=== PATIENT | female | born 1960 | race African-American/Black ===

== ENCOUNTER → 2017-05-10 | Outpatient (CLI) | payer BC ==
[2017-05-10 09:15] LABS: HEMATOCRIT 41.8 % (36.0-47.0); HEMOGLOBIN 13.6 g/dL (12.0-15.5); MEAN CORPUSCULAR HEMOGLOBIN 28.3 pg (27.0-33.4); MEAN CORPUSCULAR HGB CONC 32.6 g/dL (32.0-36.0); MEAN CORPUSCULAR VOLUME 87 fl (80-97); RED BLOOD COUNT 4.82 10^6/uL (3.72-5.28); RED CELL DISTRIBUTION WIDTH 12.9 % (11.5-14.0); WHITE BLOOD COUNT 6.4 10^3/uL (4.0-10.5)
[2017-05-10 09:26] LABS: ALANINE AMINOTRANSFERASE 23 U/L (9-52); ALBUMIN 3.9 g/dL (3.5-5.0); ALKALINE PHOSPHATASE 103 U/L (38-126); ANION GAP 9 (5-19); ASPARTATE AMINO TRANSFERASE 18 U/L (14-36); BILIRUBIN,DIRECT 0.3 mg/dL (0.0-0.4); BILIRUBIN,TOTAL 0.5 mg/dL (0.2-1.3); BLOOD UREA NITROGEN 12 mg/dL (7-20); CALCIUM 9.2 mg/dL (8.4-10.2); CARBON DIOXIDE 23 mmol/L (22-30); CHLORIDE 110 mmol/L (98-107); CHOLESTEROL 215.15 mg/dL (0-200); Direct HDL 62 mg/dL (>40); GLUCOSE 102 mg/dL (75-110); POTASSIUM 4.5 mmol/L (3.6-5.0); SODIUM 142.2 mmol/L (137-145); TOTAL PROTEIN 7.3 g/dL (6.3-8.2); TRIGLYCERIDES 65 mg/dL (<150)
[2017-05-10 09:37] LABS: DIRECT LDL 131 mg/dL (<100)
== END ==
LOC: OD 07:15
PROVIDERS: ATTEND Specialist
DX: G45.9 Transient cerebral ischemic attack, unspecified (principal)
CPT/HCPCS: 36415; 80053; 80061; 82306; 83036; 85027

== ENCOUNTER 2017-05-14 13:31 | Observation (INO) | payer BC ==
[2017-05-14] MEDS ORDERED: ASPIRIN 81 MG TABLET, CHEWABLE PO ONE (13:46)
--- NOTE | 2017-05-14 14:22 | ER Document Report ---
ED Medical Screen (RME) - General Chief Complaint: Chest Pain Stated Complaint: CHEST PAIN Mode of Arrival: Ambulatory Information source: Patient TRAVEL OUTSIDE OF THE [place] IN LAST 30 DAYS: No - HPI Onset: Other Onset/Duration: Intermittent Associated Symptoms: None Exacerbated by: Denies Notes: 05/14/17 14:20 Patient is a 56-year-old female with history of migraine headaches. She is followed by neurology. She presents with onset today of pain in her upper back between her shoulder blades and possibly radiate to her chest. No shortness of breath, nausea, sweats. She also complains of numbness and tingling to her left upper and lower extremity without any focal weakness. Patient reports having similar symptoms last week and was seen by her neurologist at that time and was told she had a "mini stroke". She has an outpatient MRI/MRA scheduled for . There has been no syncope. She is not short of breath. Denies any prior history of CVA/TIA or hypertension or diabetes. It was recommended that patient take a baby aspirin daily but she has not yet done this. - Related Data Smoking: Non-smoker Allergies/Adverse Reactions: acetaminophen [From Percocet] Allergy (Intermediate, Verified 05/14/17 14:07) itching, headaches ciprofloxacin [Ciprofloxacin] Allergy (Intermediate, Verified 05/14/17 14:07) Hives, itching hydrocodone bitartrate [From Vicodin] Allergy (Intermediate, Verified 05/14/17 14:07) itching, headaches oxycodone HCl [From Percocet] Allergy (Intermediate, Verified 05/14/17 14:07) itching, headaches Past Medical History - General Information source: Patient, [facility] Records - Social History Chew tobacco use (# tins/day): No Frequency of alcohol use: None Drug Abuse: None - Medical History Notes: Migraine headaches - Past Medical History Cardiac Medical History: Denies: Hx Coronary Artery Disease, Hx Heart Attack, Hx Hypertension Pulmonary Medical History: Denies: Hx Asthma, Hx Bronchitis, Hx COPD, Hx Pneumonia Neurological Medical History: Reports: Hx Migraine. Denies: Hx Cerebrovascular Accident, Hx Seizures Renal/ Medical History: Denies: Hx Peritoneal Dialysis Musculoskeltal Medical History: Denies Hx Arthritis Past Surgical History: Reports: Hx Hysterectomy - Immunizations Hx Diphtheria, Pertussis, Tetanus Vaccination: Yes Review of Systems - Review of Systems Cardiovascular: Chest pain Neurological/Psychological: Tingling -: Yes All other systems reviewed and negative Physical Exam - Vital signs Vitals: Temp Pulse Resp BP Pulse Ox 98.1 F 66 16 122/66 99 05/14/17 13:42 05/14/17 13:42 05/14/17 13:42 05/14/17 13:42 05/14/17 13:42 Interpretation: Normal - General General appearance: Appears well, Alert - HEENT Head: Normocephalic, Atraumatic Eyes: Normal Pupils: PERRL - Respiratory Respiratory status: No respiratory distress Chest status: Nontender Breath sounds: Normal Chest palpation: Normal - Cardiovascular Rhythm: Regular Heart sounds: Normal auscultation Murmur: No - Abdominal Inspection: Normal Distension: No distension Bowel sounds: Normal Tenderness: Nontender Organomegaly: No organomegaly - Back Back: Normal, Nontender - Extremities General upper extremity: Normal inspection, Nontender, Normal color, Normal ROM , Normal temperature General lower extremity: Normal inspection, Nontender, Normal color, Normal ROM , Normal temperature, Normal weight bearing. No: Aayush's sign - Neurological Neuro grossly intact: Yes Cognition: Normal Orientation: AAOx4 Apolinar Coma Scale Eye Opening: Spontaneous Apolinar Coma Scale Verbal: Oriented Apolinar Coma Scale Motor: Obeys Commands [place] Coma Scale Total: 15 Speech: Normal Motor strength normal: LUE, RUE, LLE, RLE Sensory: Normal - Psychological Associated symptoms: Normal affect, Normal mood - Skin Skin Temperature: Warm Skin Moisture: Dry Skin Color: Normal Course - Re-evaluation Re-evalutation: 05/14/17 14:22 Physical examination is unremarkable. Patient will be transferred to the main treatment area for further evaluation by another ED provider. There is no indication for thrombolytics at this time. - Vital Signs Vital signs: Temp Pulse Resp BP Pulse Ox 98.1 F 66 16 122/66 99 05/14/17 13:42 05/14/17 13:42 05/14/17 13:42 05/14/17 13:42 05/14/17 13:42
--- NOTE | 2017-05-14 14:50 | RADIOLOGY REPORT (SQ) ---
EXAM DESCRIPTION: CHEST SINGLE VIEW COMPLETED DATE/TIME: 05/14/2017 2:34 pm REASON FOR STUDY: cp COMPARISON: 10/14/2014. EXAM PARAMETERS: NUMBER OF VIEWS: One view. TECHNIQUE: Single frontal radiographic view of the chest acquired. RADIATION DOSE: NA LIMITATIONS: None. FINDINGS: LUNGS AND PLEURA: No opacities, masses or pneumothorax. No pleural effusion. MEDIASTINUM AND HILAR STRUCTURES: No masses. Contour normal. HEART AND VASCULAR STRUCTURES: Heart normal in size. Normal vasculature. BONES: No acute findings. HARDWARE: None in the chest. OTHER: No other significant finding. IMPRESSION: NO ACUTE RADIOGRAPHIC FINDING IN THE CHEST. TECHNICAL DOCUMENTATION: JOB ID: [id number]
--- NOTE | 2017-05-14 14:50 | RADIOLOGY REPORT (SQ) ---
EXAM DESCRIPTION: CT HEAD WITHOUT COMPLETED DATE/TIME: 05/14/2017 2:26 pm REASON FOR STUDY: poss cva COMPARISON: 06/19/2009. TECHNIQUE: Axial images acquired through the brain without intravenous contrast. Images reviewed wi th bone, brain and subdural windows. Images stored on PACS. All CT scanners at this facility use dose modulation, iterative reconstruction, and/or weight based d osing when appropriate to reduce radiation dose to as low as reasonably achievable (ALARA). [facility]: Dose Right [facility]: CareDose [facility]: Dose Right [facility]: Teradose 4D [facility]: [employer] RADIATION DOSE: Up-to-date CT equipment and radiation dose reduction techniques were employed. CTDIv ol: 64.6 mGy. DLP: 1163 mGy-cm. mGy. LIMITATIONS: None. FINDINGS: VENTRICLES: Normal size and contour. CEREBRUM: No masses. No hemorrhage. No midline shift. Normal danielson/white matter differentiation. N o evidence for acute infarction. CEREBELLUM: No masses. No hemorrhage. No alteration of density. No evidence for acute infarction. EXTRAAXIAL SPACES: No fluid collections. No masses. ORBITS AND GLOBE: No intra- or extraconal masses. Normal contour of globe without masses. CALVARIUM: No fracture. PARANASAL SINUSES: No fluid or mucosal thickening. SOFT TISSUES: No mass or hematoma. OTHER: No other significant finding. IMPRESSION: NORMAL BRAIN CT WITHOUT CONTRAST. COMMENT: Pertinent findings on the imaging study reported as a CRITICAL RESULT to ANTONY BURNETT at14:44 on 05/14/2017. Category of Critical Result: Stroke protocol. TECHNICAL DOCUMENTATION: JOB ID: [id number] Quality ID # [id number]: Final reports with documentation of one or more dose reduction techniques (e.g., Au tomated exposure control, adjustment of the mA and/or kV according to patient size, use of iterative reconstruction technique) 2010 [employer]- All Rights Reserved
--- NOTE | 2017-05-14 14:57 | ER Document Report ---
ED General - General Chief Complaint: S/S of Possible Stroke Stated Complaint: CHEST PAIN Time Seen by Provider: 05/14/17 14:24 Mode of Arrival: Ambulatory Information source: Patient Notes: 56-year-old female presents with complaints of sudden left arm numbness weakness started around 12:00 as well as back pain chest pain. Patient notes symptoms all started together, patient has had intermittent weakness numbness and contracture of her left arm over the past week, was seen by her neurologist who believes she was having a TIA TRAVEL OUTSIDE OF THE [place] IN LAST 30 DAYS: No - HPI Onset: Just prior to arrival Onset/Duration: Sudden Quality of pain: Pressure, Sharp Severity: Mild Pain Level: 1 Associated symptoms: Body/muscle aches, Chest pain, Weakness Exacerbated by: Denies Relieved by: Denies Similar symptoms previously: No Recently seen / treated by doctor: No - Related Data Allergies/Adverse Reactions: acetaminophen [From Percocet] Allergy (Intermediate, Verified 05/14/17 14:07) itching, headaches ciprofloxacin [Ciprofloxacin] Allergy (Intermediate, Verified 05/14/17 14:07) Hives, itching hydrocodone bitartrate [From Vicodin] Allergy (Intermediate, Verified 05/14/17 14:07) itching, headaches oxycodone HCl [From Percocet] Allergy (Intermediate, Verified 05/14/17 14:07) itching, headaches Past Medical History - General Information source: Patient, [facility] [place] Records - Social History Smoking Status: Current Every Day Smoker Cigarette use (# per day): Yes Chew tobacco use (# tins/day): No Smoking Education Provided: No Frequency of alcohol use: None Drug Abuse: None Family History: Reviewed & Not Pertinent Patient has suicidal ideation: No Patient has homicidal ideation: No - Past Medical History Cardiac Medical History: Denies: Hx Coronary Artery Disease, Hx Heart Attack, Hx Hypertension Pulmonary Medical History: Denies: Hx Asthma, Hx Bronchitis, Hx COPD, Hx Pneumonia Neurological Medical History: Reports: Hx Migraine. Denies: Hx Cerebrovascular Accident, Hx Seizures Renal/ Medical History: Denies: Hx Peritoneal Dialysis Musculoskeltal Medical History: Denies Hx Arthritis Past Surgical History: Reports: Hx Hysterectomy - Immunizations Hx Diphtheria, Pertussis, Tetanus Vaccination: Yes Review of Systems - Review of Systems Notes: REVIEW OF SYSTEMS: CONSTITUTIONAL : Denies fever, chills, or sweats. Denies recent illness. EENT: Denies eye, ear, throat, or mouth pain or symptoms. Denies nasal or sinus congestion or discharge. Denies throat, tongue, or mouth swelling or difficulty swallowing. CARDIOVASCULAR: Admits to chest pain RESPIRATORY: Denies cough, cold, or chest congestion. Denies shortness of breath, difficulty breathing, or wheezing. GASTROINTESTINAL: Denies abdominal pain or distention. Denies nausea, vomiting , or diarrhea. Denies blood in vomitus, stools, or per rectum. Denies black, tarry stools. Denies constipation. GENITOURINARY: Denies difficulty urinating, painful urination, burning, frequency, blood in urine, or discharge. FEMALE GENITOURINARY: Denies vaginal bleeding, heavy or abnormal periods, irregular periods. Denies vaginal discharge or odor. MUSCULOSKELETAL: Left arm pain SKIN: Denies rash, lesions or sores. HEMATOLOGIC : Denies easy bruising or bleeding. LYMPHATIC: Denies swollen, enlarged glands. NEUROLOGICAL: The left arm weakness PSYCHIATRIC: Denies anxiety or stress. Denies depression, suicidal ideation, or homicidal ideation. ALL OTHER SYSTEMS REVIEWED AND NEGATIVE. PHYSICAL EXAMINATION: GENERAL: Well-appearing, well-nourished and in no acute distress. HEAD: Atraumatic, normocephalic. EYES: Pupils equal round and reactive to light, extraocular movements intact, conjunctiva are normal. ENT: Nares patent, oropharynx clear without exudates. Moist mucous membranes. NECK: Normal range of motion, supple without lymphadenopathy LUNGS: Breath sounds clear to auscultation bilaterally and equal. No wheezes rales or rhonchi. HEART: Regular rate and rhythm without murmurs ABDOMEN: Soft, nontender, nondistended abdomen. No guarding, no rebound. No masses appreciated. Female : deferred Musculoskeletal: Normal range of motion, no pitting or edema. No cyanosis. NEUROLOGICAL: Contracture of the left arm with mild weakness NIH score 1 PSYCH: Normal mood, normal affect. SKIN: Warm, Dry, normal turgor, no rashes or lesions noted. Dictation was performed using [employer] voice recognition software Physical Exam - Vital signs Vitals: Temp Pulse Resp BP Pulse Ox 98.1 F 66 16 122/66 99 05/14/17 13:42 05/14/17 13:42 05/14/17 13:42 05/14/17 13:42 05/14/17 13:42 Course - Re-evaluation Re-evalutation: 05/14/17 14:56 At this time I do not have a clear decision versus stroke or a aortic dissection , a CVA should not have chest pain with back pain, therefore I am not willing to risk this patient's to give thrombolytics, a CT chest been ordered. He has been made aware of my concerns and they defer on thrombolytics as well 05/14/17 16:05 cta negative, pt will be admitted to hospitalist - Vital Signs Vital signs: Temp Pulse Resp BP Pulse Ox 98.1 F 67 20 119/63 100 05/14/17 13:42 05/14/17 14:50 05/14/17 16:01 05/14/17 16:01 05/14/17 15:33 - Laboratory Result Diagrams: 05/14/17 14:51 05/14/17 14:51 - Diagnostic Test Radiology reviewed: Image reviewed, Reports reviewed - EKG Interpretation by Me EKG shows normal: Sinus rhythm, Donalds, Intervals, QRS Complexes Discharge - Discharge Clinical Impression: Weakness of left upper extremity, Left upper extremity numbness Chest pain Qualifiers: Chest pain type: unspecified Qualified Code(s): R07.9 - Chest pain, unspecified Condition: Stable Disposition: ADMITTED OBSERVATION Admitting Provider: Hospitalist Unit Admitted: Telemetry
[2017-05-14 15:20] LABS: ABSOLUTE BASOPHILS # (AUTO) 0.1 10^3/uL (0.0-0.2); ABSOLUTE EOSINOPHILS # (AUTO) 0.1 10^3/uL (0.0-0.6); ABSOLUTE LYMPHOCYTES (AUTO) 2.9 10^3/uL (0.5-4.7); ABSOLUTE MONOCYTES (AUTO) 0.7 10^3/uL (0.1-1.4); BASOPHILS % (AUTO) 1.2 % (0-2); EOSINOPHILS % (AUTO) 0.8 % (0-6); HEMATOCRIT 41.3 % (36.0-47.0); HEMOGLOBIN 13.3 g/dL (12.0-15.5); HGB HCT DIFFERENCE -1.4; LYMPHOCYTES % (AUTO) 37.4 % (13-45); MEAN CORPUSCULAR HEMOGLOBIN 27.9 pg (27.0-33.4); MEAN CORPUSCULAR HGB CONC 32.3 g/dL (32.0-36.0); MEAN CORPUSCULAR VOLUME 86 fl (80-97); MONOCYTES % (AUTO) 9.4 % (3-13); RED BLOOD COUNT 4.79 10^6/uL (3.72-5.28); RED CELL DISTRIBUTION WIDTH 12.8 % (11.5-14.0); SEGMENTED NEUTROPHILS % (AUTO) 51.2 % (42-78); WHITE BLOOD COUNT 7.8 10^3/uL (4.0-10.5)
[2017-05-14 15:40] LABS: ALANINE AMINOTRANSFERASE 16 U/L (9-52); ALBUMIN 3.7 g/dL (3.5-5.0); ALKALINE PHOSPHATASE 90 U/L (38-126); ANION GAP 9 (5-19); ASPARTATE AMINO TRANSFERASE 16 U/L (14-36); BILIRUBIN,DIRECT 0.3 mg/dL (0.0-0.4); BILIRUBIN,TOTAL 0.4 mg/dL (0.2-1.3); BLOOD UREA NITROGEN 8 mg/dL (7-20); CARBON DIOXIDE 26 mmol/L (22-30); CHLORIDE 107 mmol/L (98-107); CREATINE KINASE 96 U/L (30-135); CREATININE RESULT 0.95 mg/dL (0.52-1.25); GLUCOSE 91 mg/dL (75-110); POTASSIUM 3.9 mmol/L (3.6-5.0); SODIUM 141.6 mmol/L (137-145); TOTAL PROTEIN 7.3 g/dL (6.3-8.2)
--- NOTE | 2017-05-14 15:40 | RADIOLOGY REPORT (SQ) ---
EXAM DESCRIPTION: CTA CHEST COMPLETED DATE/TIME: 05/14/2017 3:28 pm REASON FOR STUDY: left arm back pain COMPARISON: None. TECHNIQUE: CT scan of the chest performed using helical scanning technique with dynamic intravenous contrast injection. Images reviewed with lung, soft tissue and bone windows. Reconstructed coronal and sagittal MPR images reviewed. Additional 3 dimensional post-processing performed to develop Maximal Intensity Projection images (CA P). All images stored on PACS. All CT scanners at this facility use dose modulation, iterative reconstruction, and/or weight based d osing when appropriate to reduce radiation dose to as low as reasonably achievable (ALARA). [facility]: Dose Right [facility]: CareDose [facility]: Dose Right [facility]: Teradose 4D [facility]: [employer] CONTRAST TYPE AND DOSE: contrast/concentration: Isovue 370.00 mg/ml; Total Contrast Delivered: 80.0 ml; Total Saline Delivered: 75.0 ml RENAL FUNCTION: Not available at time of dictation. RADIATION DOSE: . LIMITATIONS: None. FINDINGS: LUNGS AND PLEURA: No masses, infiltrates, pneumothorax. No pleural effusions, calcificati ons. AORTA AND GREAT VESSELS: No aneurysm or dissection. HEART: No pericardial effusion. PULMONARY ARTERIES: No emboli visualized in the main pulmonary arteries or the segmental branches. HILAR AND MEDIASTINAL STRUCTURES: No identified masses or abnormal nodes. HARDWARE: None in the chest. UPPER ABDOMEN: No significant findings. Limited exam. THYROID AND OTHER SOFT TISSUES: No masses. No adenopathy. BONES: No acute or significant finding. 3D MIPS: Confirm above findings. OTHER: No other significant finding. IMPRESSION: No pulmonary emboli. No aortic dissection. TECHNICAL DOCUMENTATION: JOB ID: [id number] Quality ID # [id number]: Final reports with documentation of one or more dose reduction techniques (e.g., Au tomated exposure control, adjustment of the mA and/or kV according to patient size, use of iterative reconstruction technique) 2010 [employer]- All Rights Reserved
--- NOTE | 2017-05-14 15:44 | RADIOLOGY REPORT (SQ) ---
EXAM DESCRIPTION: CTA ABDOMEN COMPLETED DATE/TIME: 05/14/2017 3:28 pm REASON FOR STUDY: left arm pain ,back pain COMPARISON: None. TECHNIQUE: CT scan of the abdominal aorta extending to the iliac bifurcation performed with and with out intravenous contrast using helical scanning technique with dynamic intravenous contrast injection . Images reviewed with lung, soft tissue, and bone windows. Reconstructed coronal and sagittal MPR im ages reviewed. All images stored on PACS. Advanced 3D imaging as volume rendering, MIPS, SSD performed? yes All CT scanners at this facility use dose modulation, iterative reconstruction, and/or weight based d osing when appropriate to reduce radiation dose to as low as reasonably achievable (ALARA). [facility]: Dose Right [facility]: CareDose [facility]: Dose Right [facility]: Teradose 4D [facility]: [employer] CONTRAST TYPE AND DOSE: 80 mL Isovue 370 RENAL FUNCTION: Not available at time of dictation. LIMITATIONS: None. FINDINGS: POST-CONTRAST IMAGING: AORTA AND VESSELS: No aneurysm. No dissection. Renal arteries, SMA, celiac without stenosis. LUNG BASES: No significant findings. No nodules or infiltrates. LIVER: Normal size. No masses or dilated ducts. SPLEEN: Normal size. No focal lesions. PANCREAS: No masses. No significant calcifications. No adjacent inflammation or peripancreatic fluid collections. Pancreatic duct not dilated. GALLBLADDER: No identified stones by CT criteria. No inflammatory changes to suggest cholecystitis. ADRENAL GLANDS: No significant masses or asymmetry. RIGHT KIDNEY AND URETER: No mass, calculi or urinary tract obstruction. LEFT KIDNEY AND URETER: There are simple left renal cysts. RETROPERITONEUM: No retroperitoneal adenopathy, hemorrhage or masses. BOWEL AND PERITONEAL CAVITY: No masses or inflammatory changes. No free fluid or peritoneal masses. APPENDIX: Not visualized. ABDOMINAL WALL: No masses. No hernias. BONY STRUCTURES: No significant or acute findings. 3-D IMAGING: Confirms the above findings. OTHER: No other significant finding. IMPRESSION: NO ABDOMINAL AORTIC ANEURYSM, DISSECTION OR SIGNIFICANT STENOSIS. NO SIGNIFICANT FINDING S IN THE ABDOMEN. TECHNICAL DOCUMENTATION: JOB ID: [id number] Quality ID # [id number]: Final reports with documentation of one or more dose reduction techniques (e.g., Au tomated exposure control, adjustment of the mA and/or kV according to patient size, use of iterative reconstruction technique) 2010 [employer]- All Rights Reserved
[2017-05-14 15:51] LABS: CREATINE KINASE MB 0.28 ng/mL (<4.55)
[2017-05-14 15:53] LABS: TROPONIN I < 0.012 ng/mL
[2017-05-14] MEDS ORDERED: TRAMADOL HCL 50 MG TABLET PO PRN (16:34)
[2017-05-14] MEDS ORDERED: ONDANSETRON HCL INJ/PF 4 MG/2 ML SDV IV PRN (16:36)
--- NOTE | 2017-05-14 16:49 | PDOC H&P ---
History of Present Illness Admission Date/PCP: 05/14/17 16:11 CHERI NELSON MD Patient complains of: Left-sided weakness History of Present Illness: LUIS REIS is a 56 year old female with history of migraine headaches presents with 1-2 weeks of left arm and left leg weakness as well as daily headaches. She has been out of Topamax for little over 1 month. She was seen by her neurologist Dr. Neri last week and he ordered an outpatient MRI of the brain and carotid Doppler. Today patient has also noted pain in her mid thoracic back radiating through to her chest with associated shortness of breath. Review of prior records indicate that she had a Cardiolite stress test on 11/05/2013 that showed mild ischemia of the apical septum and apical lateral wall. She states that she subsequently had a cardiac catheterization in [address] Bajwa in [facility] and was told that this was normal. Past Medical History Cardiac Medical History: Denies: Coronary Artery Disease, Myocardial Infarction, Hypertension Pulmonary Medical History: Denies: Asthma, Bronchitis, Chronic Obstructive Pulmonary Disease (COPD), Pneumonia Neurological Medical History: Reports: Migraine Denies: Seizures Musculoskeltal Medical History: Denies: Arthritis Hematology: Denies: Anemia Past Surgical History Past Surgical History: Reports: Hysterectomy Social History Information Source: Patient Smoking Status: Current Every Day Smoker Hx Recreational Drug Use: No - Advance Directive Resuscitation Status: Full Code Family History Family History: Hypertension Parental Family History Reviewed: Yes Children Family History Reviewed: Yes Sibling(s) Family History Reviewed.: Yes Medication/Allergy Home Medications: Estrogens, Conjugated [Premarin] 0.3 mg PO DAILY 10/09/13 Topiramate [Topamax] 10 mg PO BID 10/09/13 Allergies/Adverse Reactions: acetaminophen [From Percocet] Allergy (Intermediate, Verified 05/14/17 14:07) itching, headaches ciprofloxacin [Ciprofloxacin] Allergy (Intermediate, Verified 05/14/17 14:07) Hives, itching hydrocodone bitartrate [From Vicodin] Allergy (Intermediate, Verified 05/14/17 14:07) itching, headaches oxycodone HCl [From Percocet] Allergy (Intermediate, Verified 05/14/17 14:07) itching, headaches Review of Systems Constitutional: ABSENT: chills, fever(s), headache(s), weight gain, weight loss Eyes: ABSENT: visual disturbances Ears: ABSENT: hearing changes Cardiovascular: PRESENT: chest pain. ABSENT: dyspnea on exertion, edema, orthropnea, palpitations Respiratory: ABSENT: cough, hemoptysis Gastrointestinal: ABSENT: abdominal pain, constipation, diarrhea, hematemesis, hematochezia, nausea, vomiting Genitourinary: ABSENT: dysuria, hematuria Musculoskeletal: ABSENT: joint swelling Integumentary: ABSENT: rash, wounds Neurological: PRESENT: focal weakness. ABSENT: abnormal gait, abnormal speech, confusion, dizziness, syncope Psychiatric: ABSENT: anxiety, depression, homidical ideation, suicidal ideation Endocrine: ABSENT: cold intolerance, heat intolerance, polydipsia, polyuria Hematologic/Lymphatic: ABSENT: easy bleeding, easy bruising Physical Exam Vital Signs: Temp Pulse Resp BP Pulse Ox 98.1 F 67 20 119/63 100 05/14/17 13:42 05/14/17 14:50 05/14/17 16:01 05/14/17 16:01 05/14/17 15:33 PHYSICAL EXAM: GENERAL: Appears well, no acute distress HEENT: Normocephalic, no scleral icterus, conjunctiva clear, EOEM intact, PERRLA , moist mucous membranes NECK: trachea midline, no thyromegally RESPIRATORY: Clear to auscultation, no wheezes/rhonchi CARDIAC: Regular rate and rhythm, no murmur/claus/rub ABDOMEN: Soft, no distension, no tenderness, no guarding, normal bowel sounds, negative Epstein sign RECTAL: deferred : deferred EXTREMITIES: No edema, cyanosis, clubbing MUSCULOSKELETAL: No joint swelling or deformity. No reproducible tenderness of chest wall or thoracic spine/paraspinous muscles. Full range of motion of the cervical/thoracic spine without pain. VASCULAR: normal peripheral pulses NEUROLOGIC: Alert, oriented to person/place/time, normal speech, cranial nerves grossly intact, 5/5 strength in right upper extremity/right lower extremity, 3/ 5 strength noted with flexion and extension of left knee, significant weakness noted in interdigital muscles of the left hand, tactile sensation intact in all extremities SKIN: No rash, no wounds, no worrisome skin lesions PSYCHIATRIC: Normal mood, normal affect Results Laboratory Results: Labs- All tests 24 hr 05/14/17 05/14/17 05/14/17 14:51 14:51 14:51 WBC 7.8 RBC 4.79 Hgb 13.3 Hct 41.3 MCV 86 MCH 27.9 MCHC 32.3 RDW 12.8 Plt Count 225 Seg Neutrophils % 51.2 Lymphocytes % 37.4 Monocytes % 9.4 Eosinophils % 0.8 Basophils % 1.2 Absolute Neutrophils 4.0 Absolute Lymphocytes 2.9 Absolute Monocytes 0.7 Absolute Eosinophils 0.1 Absolute Basophils 0.1 Sodium 141.6 Potassium 3.9 Chloride 107 Carbon Dioxide 26 Anion Gap 9 BUN 8 Creatinine 0.95 Est GFR ( Amer) > 60 Est GFR (Non-Af Amer) > 60 Glucose 91 Calcium 9.0 Total Bilirubin 0.4 Direct Bilirubin 0.3 Indirect Bilirubin Not Reportable Neonat Total Bilirubin Not Reportable AST 16 ALT 16 Alkaline Phosphatase 90 Creatine Kinase 96 CK-MB (CK-2) 0.28 Troponin I < 0.012 Total Protein 7.3 Albumin 3.7 EKG Comments: Sinus rhythm no acute ST/T-wave changes Impressions: Chest X-Ray 05/14/17 14:12 IMPRESSION: NO ACUTE RADIOGRAPHIC FINDING IN THE CHEST. Head CT 05/14/17 14:19 IMPRESSION: NORMAL BRAIN CT WITHOUT CONTRAST. Chest/Abdomen CTA 05/14/17 14:58 IMPRESSION: NO ABDOMINAL AORTIC ANEURYSM, DISSECTION OR SIGNIFICANT STENOSIS. NO SIGNIFICANT FINDINGS IN THE ABDOMEN. Assessment & Plan - Diagnosis (1) Left arm weakness Is this a current diagnosis for this admission?: YesPlan: Placed in observation status. Check MRI of the brain and MRI of the neck. Check carotid Doppler. Start aspirin. DVT prophylaxis. Physical therapy evaluation. If patient rules out for stroke is possible to her symptoms could represent a Juan Daniel's paralysis associated with ongoing uncontrolled migraine headaches. (2) Migraine Is this a current diagnosis for this admission?: YesPlan: Patient has not taken her Topamax in about 1 month. It is possible that her symptoms may represent uncontrolled migraine headaches with Juan Daniel's paralysis. That being said we need to rule out stroke. She is normally followed by Dr. Neri neurology. As needed IV Toradol for now. Avoid triptan's for now secondary to rule out stroke. (3) Chest pain Qualifiers: Chest pain type: unspecified Qualified Code(s): R07.9 - Chest pain, unspecified Is this a current diagnosis for this admission?: YesPlan: Telemetry monitoring. Serial cardiac enzymes. Aspirin. Check lipid panel. (4) Tobacco abuse Is this a current diagnosis for this admission?: Yes - Time Time Spent: Greater than 70 Minutes
--- NOTE | 2017-05-14 19:19 | EKG REPORT ---
SEVERITY:- BORDERLINE ECG - SINUS RHYTHM PROBABLE LEFT ATRIAL ABNORMALITY : Confirmed by: Chucho Biswas MD 14-May-2017 19:19:02
[2017-05-14 21:32] LABS: CREATINE KINASE MB 0.42 ng/mL (<4.55)
[2017-05-14 21:34] LABS: TROPONIN I < 0.012 ng/mL
--- NOTE | 2017-05-14 23:04 | RADIOLOGY REPORT (SQ) ---
EXAM DESCRIPTION: CAROTID DOPPLER COMPLETED DATE/TIME: 05/14/2017 10:50 pm REASON FOR STUDY: acute neurologic syndrome COMPARISON: None. TECHNIQUE: Grayscale ultrasound, Doppler velocity and spectra, and color Doppler images acquired of the extra-cranial carotid and vertebral arteries. Images stored on PACS. LIMITATIONS: None. FINDINGS: RIGHT CAROTID CCA Velocities: Within normal limits. ICA Velocities Peak systolic 0.79 m/s. End diastolic 0.33 m/s. Proximal ICA/CCA peak systolic ratio 1.2. Slightly irregular and slightly heterogeneous atherosclerotic plaquing is identified. LEFT CAROTID CCA Velocities: Within normal limits. ICA Velocities Peak systolic 0.79 m/s. End diastolic 0.33 m/s. Proximal ICA/CCA peak systolic ratio 1.0. Slightly irregular and slightly heterogeneous atherosclerotic plaquing is identified. VERTEBRAL ARTERIES: Antegrade flow. Normal waveforms. SUBCLAVIAN ARTERIES: No finding. OTHER: No other significant finding. IMPRESSION: NO HEMODYNAMICALLY SIGNIFICANT STENOSIS. COMMENT: Quality ID #[id number]: Velocity criteria are extrapolated from the diameter data as defined by t he Society of Radiologists in Ultrasound Consensus Conference. Radiology 2003: 229; 340-346. TECHNICAL DOCUMENTATION: JOB ID: [id number] [employer]- All Rights Reserved
--- NOTE | 2017-05-14 23:11 | RADIOLOGY REPORT (SQ) ---
EXAM DESCRIPTION: MRI HEAD WITHOUT COMPLETED DATE/TIME: 05/14/2017 10:06 pm REASON FOR STUDY: left arm weaknes COMPARISON: None. TECHNIQUE: Multiplanar imaging includes non-contrasted T1, T2, FLAIR, and diffusion with ADC map seq uences. Images stored on PACS. LIMITATIONS: None. FINDINGS: ANATOMY: No anomalies. Normal vascular flow voids. Pituitary fossa normal. CSF SPACES: Normal in size and contour. No hemorrhage. CEREBRUM: Sulci and gyri normal in size and contour. There is a single focus of increased signal int ensity in the periventricular white matter on the right in the frontoparietal region which may only r epresent small vessel ischemic changes although the possibility of a demyelinating process cannot be excluded. This could also be related to an area of recent infarction. No evidence of hemorrhage, ma ss, or extraaxial fluid collection. POSTERIOR FOSSA: No signal alteration. No hemorrhage. No edema, masses or mass effect. Internal alyssa tory canals, cerebello-pontine angles, mastoids normal. DIFFUSION IMAGING: There is a small focus of increased signal intensity on the diffusion-weighted cruz ges in the periventricular white matter on the right in the frontoparietal region which I cannot excl ude as an area of recent infarction. ORBITS: No masses. Globes normal. PARANASAL SINUSES: No fluid levels. Mucosa normal. OTHER: No other significant finding. IMPRESSION: Single focus of increased signal intensity in the periventricular white matter on the ri ght in the frontoparietal region as noted above which I cannot exclude as a focal area of recent infa rction although this could represent an area of demyelinization or small vessel ischemic changes. Cl inical correlation is recommended. Other findings as noted above TECHNICAL DOCUMENTATION: JOB ID: [id number] [employer]- All Rights Reserved
--- NOTE | 2017-05-14 23:16 | RADIOLOGY REPORT (SQ) ---
EXAM DESCRIPTION: MRI CERVICAL SPINE WITHOUT COMPLETED DATE/TIME: 05/14/2017 10:06 pm REASON FOR STUDY: left arm weaknes COMPARISON: None. TECHNIQUE: Sagittal and Axial imaging includes T1, T2, STIR and gradient echo sequences. LIMITATIONS: None. FINDINGS: ALIGNMENT: Normal. VERTEBRAE: Intact. BONE MARROW: Normal. No marrow replacement or reactive changes. DISCS: Normal. No significant abnormal signal or loss of height. HARDWARE: None in the spine. CORD AND BASE OF BRAIN: Normal in size and signal intensity. SOFT TISSUES: No soft tissue masses. C1-C2: No significant spinal stenosis. C2-C3: No significant spinal stenosis or exit foraminal stenosis. C3-C4: No significant spinal stenosis or exit foraminal stenosis. C4-C5: No significant spinal stenosis or exit foraminal stenosis. C5-C6: No significant spinal stenosis or exit foraminal stenosis. C6-C7: No significant spinal stenosis or exit foraminal stenosis. C7-T1: No significant spinal stenosis or exit foraminal stenosis. UPPER THORACIC: Incompletely imaged. No significant spinal stenosis or exit foraminal stenosis. OTHER: No other significant finding. IMPRESSION: No significant findings. TECHNICAL DOCUMENTATION: JOB ID: [id number] [employer]- All Rights Reserved
[2017-05-15 03:31] LABS: HEMATOCRIT 38.1 % (36.0-47.0); HEMOGLOBIN 12.3 g/dL (12.0-15.5); HGB HCT DIFFERENCE -1.2; MEAN CORPUSCULAR HEMOGLOBIN 28.3 pg (27.0-33.4); MEAN CORPUSCULAR HGB CONC 32.4 g/dL (32.0-36.0); MEAN CORPUSCULAR VOLUME 87 fl (80-97); RED BLOOD COUNT 4.36 10^6/uL (3.72-5.28); RED CELL DISTRIBUTION WIDTH 12.4 % (11.5-14.0); WHITE BLOOD COUNT 8.1 10^3/uL (4.0-10.5)
[2017-05-15 04:11] LABS: ANION GAP 7 (5-19); BLOOD UREA NITROGEN 12 mg/dL (7-20); CALCIUM 8.5 mg/dL (8.4-10.2); CARBON DIOXIDE 23 mmol/L (22-30); CHLORIDE 109 mmol/L (98-107); CHOLESTEROL 180.38 mg/dL (0-200); CREATINE KINASE 104 U/L (30-135); CREATININE RESULT 0.86 mg/dL (0.52-1.25); Direct HDL 50 mg/dL (>40); GLUCOSE 99 mg/dL (75-110); POTASSIUM 3.9 mmol/L (3.6-5.0); SODIUM 138.5 mmol/L (137-145); TRIGLYCERIDES 73 mg/dL (<150)
[2017-05-15 04:22] LABS: CREATINE KINASE MB 0.38 ng/mL (<4.55); DIRECT LDL 107 mg/dL (<100)
[2017-05-15 04:26] LABS: TROPONIN I < 0.012 ng/mL
[2017-05-15] MEDS ORDERED: ASPIRIN 325 MG TABLET, ENT COATED PO SCH (10:00)
[2017-05-15] MEDS ORDERED: ENOXAPARIN SODIUM INJ 40 MG/0.4 ML DISP.SYRIN SUBCUT SCH (10:00)
[2017-05-15 10:17] LABS: TROPONIN I < 0.012 ng/mL
--- NOTE | 2017-05-15 10:37 | PDOC DISCHARGE SUMMARY ---
General - Admit/Disc Date/PCP Admission Date/Primary Care Provider: 05/14/17 16:36 CHERI NELSON MD Discharge Date: 05/15/17 - Discharge Diagnosis (1) Acute CVA (cerebrovascular accident) Is this a current diagnosis for this admission?: Yes (2) Migraine Is this a current diagnosis for this admission?: Yes (3) Chest pain Is this a current diagnosis for this admission?: Yes (4) Tobacco abuse Is this a current diagnosis for this admission?: Yes - Additional Information Resuscitation Status: Full Code Discharge Diet: Cardiac Discharge Activity: Activity As Tolerated Home Medications: Zolpidem Tartrate [Ambien] 10 mg PO QHS 05/14/17 Aspirin [Ecotrin 325 mg EC Tablet] 325 mg PO DAILY tabec 05/15/17 Atorvastatin Calcium [Lipitor 20 mg Tablet] 20 mg PO QHS #30 tablet 05/15/17 Topiramate [Topamax 100 mg Tablet] 100 mg PO Q12 #60 tablet 05/15/17 Tramadol HCl [Ultram 50 mg Tablet] 50 mg PO Q8HP PRN #20 tablet 05/15/17 History of Present Illness Patient complains of: Left-sided weakness History of Present Illness: LUIS REIS is a 56 year old female with history of migraine headaches presents with 1-2 weeks of left arm and left leg weakness as well as daily headaches. She has been out of Topamax for little over 1 month. She was seen by her neurologist Dr. Neri last week and he ordered an outpatient MRI of the brain and carotid Doppler. Today patient has also noted pain in her mid thoracic back radiating through to her chest with associated shortness of breath. Review of prior records indicate that she had a Cardiolite stress test on 11/05/2013 that showed mild ischemia of the apical septum and apical lateral wall. She states that she subsequently had a cardiac catheterization in [address] Bajwa in [facility] and was told that this was normal. Hospital Course Hospital Course: Patient was admitted with 2 primary complaints. First complaint of left-sided weakness 2 weeks. She was evaluated by her neurologist Dr. Neri as an outpatient and he ordered an outpatient MRI and carotid Doppler but patient presented to the emergency department prior to having this done. She was placed in observation status overnight. MRI of the brain in fact revealed subacute right frontoparietal CVA. Patient was started on aspirin 325 mg daily. She was also started on Lipitor 20 mg daily secondary to slightly elevated LDL. Carotid Dopplers showed no hemodynamically significant stenosis. She is advised to avoid taking Maxalt for her migraine headaches for now until she sees her neurologist. She will need to follow-up with her neurologist as soon as possible. Patient also had chest pain radiating to her thoracic spine. CT angiogram of chest was negative for pulmonary embolism or thoracic dissection. Serial cardiac enzymes are negative. It sounds like she had a stress test and subsequently cardiac cath a few years ago by Dr. Bajwa. She was told that the cardiac cath was unremarkable. She will need to follow-up with Dr. Bajwa after discharge. With regard to patient's chronic migraine headaches as mentioned above I have advised her to avoid Maxalt for now secondary to acute stroke. I prescribed as needed tramadol for now. Patient was not taking her Topamax for about 1 month and I have given her a prescription refill for this. Physical Exam Vital Signs: Temp Pulse Resp BP Pulse Ox 98.4 F 56 L 18 101/61 100 05/15/17 07:29 05/15/17 08:00 05/15/17 08:00 05/15/17 08:00 05/15/17 08:00 Intake & Output 05/14/17 05/15/17 05/16/17 06:59 06:59 06:59 Intake Total 527 Output Total 3 Balance 524 Weight 70.8 kg GENERAL: Appears well, no acute distress HEENT: Normocephalic, no scleral icterus, conjunctiva clear, EOEM intact, PERRLA , moist mucous membranes NECK: trachea midline, no thyromegally RESPIRATORY: Clear to auscultation, no wheezes/rhonchi CARDIAC: Regular rate and rhythm, no murmur/claus/rub ABDOMEN: Soft, no distension, no tenderness, no guarding, normal bowel sounds, negative Epstein sign EXTREMITIES: No edema, cyanosis, clubbing MUSCULOSKELETAL: No joint swelling or deformity. VASCULAR: normal peripheral pulses NEUROLOGIC: Alert, oriented to person/place/time, normal speech, cranial nerves grossly intact, 5/5 strength in right upper extremity/right lower extremity, 3/ 5 strength noted with flexion and extension of left knee, significant weakness noted in interdigital muscles of the left hand, tactile sensation intact in all extremities SKIN: No rash, no wounds, no worrisome skin lesions PSYCHIATRIC: Normal mood, normal affect Results Laboratory Results: 05/15/17 03:14 05/15/17 03:14 05/15/17 05/15/17 05/15/17 03:14 03:14 03:14 WBC 8.1 RBC 4.36 Hgb 12.3 Hct 38.1 MCV 87 MCH 28.3 MCHC 32.4 RDW 12.4 Plt Count 163 Sodium 138.5 Potassium 3.9 Chloride 109 H Carbon Dioxide 23 Anion Gap 7 BUN 12 Creatinine 0.86 Est GFR ( Amer) > 60 Est GFR (Non-Af Amer) > 60 Glucose 99 Calcium 8.5 Triglycerides 73 Cholesterol 180.38 LDL Cholesterol Direct 107 H VLDL Cholesterol 15.0 HDL Cholesterol 50 TSH 2.42 05/14/17 05/14/17 05/15/17 20:54 20:54 03:14 Creatine Kinase 101 CK-MB (CK-2) 0.42 0.38 Troponin I < 0.012 < 0.012 05/15/17 05/15/17 05/15/17 03:14 09:20 09:20 Creatine Kinase 104 101 CK-MB (CK-2) 0.30 Troponin I < 0.012 Impressions: Cervical Spine MRI 05/14/17 00:00 IMPRESSION: No significant findings. Head MRI 05/14/17 00:00 IMPRESSION: Single focus of increased signal intensity in the periventricular white matter on the right in the frontoparietal region as noted above which I cannot exclude as a focal area of recent infarction although this could represent an area of demyelinization or small vessel ischemic changes. Clinical correlation is recommended. Other findings as noted above Chest X-Ray 05/14/17 14:12 IMPRESSION: NO ACUTE RADIOGRAPHIC FINDING IN THE CHEST. Head CT 05/14/17 14:19 IMPRESSION: NORMAL BRAIN CT WITHOUT CONTRAST. Chest/Abdomen CTA 05/14/17 14:58 IMPRESSION: NO ABDOMINAL AORTIC ANEURYSM, DISSECTION OR SIGNIFICANT STENOSIS. NO SIGNIFICANT FINDINGS IN THE ABDOMEN. Carotid Doppler Study 05/14/17 16:36 IMPRESSION: NO HEMODYNAMICALLY SIGNIFICANT STENOSIS. Qualifiers PATEINT BEING DISCHARGED WITH ANY OF THE FOLLOWING DIAGNOSIS?: Stroke VTE patient discharged on overlapping Therapy?: Yes Stroke Pt being discharged on Anti-thrombolytic therapy?: Yes Stroke Pt being discharged on Anti-coagulation therapy?: No Reason(s) for not prescribing Anti-coagulation therapy:: Not indicated Stroke Pt being discharged on Statins?: Yes Plan Time Spent: Less than 30 Minutes
[2017-05-15 10:40] VITALS: BP 129/65
[2017-05-15] MEDS ORDERED: ATORVASTATIN CALCIUM 20 MG TABLET PO SCH (22:00)
== END 2017-05-15 11:16 | disposition home or self-care (01) ==
LOC: ER 13:31 → EH 16:11 → UNDOADMOB 16:11 → 3S 16:36 → EH 17:52
PROVIDERS: ADMIT Internal Medicine; ATTEND Internal Medicine
DX: I63.8 Other cerebral infarction (principal); R29.701 NIHSS score 1; G43.909 Migraine, unspecified, not intractable, without status migrainosus; R07.89 Other chest pain; F17.200 Nicotine dependence, unspecified, uncomplicated; R06.02 Shortness of breath; M54.6 Pain in thoracic spine; M62.81 Muscle weakness (generalized); R53.1 Weakness; R20.0 Anesthesia of skin; F17.210 Nicotine dependence, cigarettes, uncomplicated; Z79.899 Other long term (current) drug therapy; Z79.82 Long term (current) use of aspirin; Z79.818 Long term (current) use of other agents affecting estrogen receptors and estrogen levels
CPT/HCPCS: 93005; 99285; 36415 ×2; 82553 ×2; 82550 ×2; 84443; 85025; 85027; 80048; 80053; 84484 ×2; 80061; 93880; 70551; 72141; 71010; 70450; 71275; 74175; 93010; J1650; J3490; G0378

== ENCOUNTER 2018-01-11 19:09 | Emergency (ER) | payer BC ==
--- NOTE | 2018-01-11 19:41 | ER Document Report ---
ED Medical Screen (RME) - General Chief Complaint: Fall Stated Complaint: FALL Time Seen by Provider: 01/11/18 19:39 Mode of Arrival: Wheelchair Information source: Patient TRAVEL OUTSIDE OF THE [place] IN LAST 30 DAYS: No - HPI Patient complains to provider of: fall Onset: This afternoon - pt fell down some steps earlier today -- c/o L foot pain. No neck pain, no LOC - Related Data Allergies/Adverse Reactions: acetaminophen [From Percocet] Allergy (Intermediate, Verified 01/11/18 19:11) itching, headaches ciprofloxacin [Ciprofloxacin] Allergy (Intermediate, Verified 01/11/18 19:11) Hives, itching hydrocodone bitartrate [From Vicodin] Allergy (Intermediate, Verified 01/11/18 19:11) itching, headaches oxycodone HCl [From Percocet] Allergy (Intermediate, Verified 01/11/18 19:11) itching, headaches Past Medical History - Social History Chew tobacco use (# tins/day): No Frequency of alcohol use: None Drug Abuse: None - Past Medical History Cardiac Medical History: Denies: Hx Coronary Artery Disease, Hx Heart Attack, Hx Hypertension Pulmonary Medical History: Denies: Hx Asthma, Hx Bronchitis, Hx COPD, Hx Pneumonia Neurological Medical History: Reports: Hx Migraine. Denies: Hx Cerebrovascular Accident, Hx Seizures Renal/ Medical History: Denies: Hx Peritoneal Dialysis Musculoskeltal Medical History: Denies Hx Arthritis Psychiatric Medical History: Reports: Hx Depression Past Surgical History: Reports: Hx Hysterectomy - Immunizations Hx Diphtheria, Pertussis, Tetanus Vaccination: Yes
--- NOTE | 2018-01-11 20:30 | RADIOLOGY REPORT (SQ) ---
EXAM DESCRIPTION: FOOT LEFT COMPLETE COMPLETED DATE/TIME: 01/11/2018 8:15 pm REASON FOR STUDY: fall COMPARISON: None. NUMBER OF VIEWS: Three views. TECHNIQUE: AP, lateral and oblique radiographic images acquired of the left foot. LIMITATIONS: None. FINDINGS: MINERALIZATION: Normal. BONES: No acute fracture or dislocation. No worrisome bone lesions. JOINTS: No effusions. SOFT TISSUES: No soft tissue swelling. No foreign body. OTHER: No other significant finding. IMPRESSION: NEGATIVE STUDY OF THE LEFT FOOT. NO RADIOGRAPHIC EVIDENCE OF ACUTE INJURY. TECHNICAL DOCUMENTATION: JOB ID: [id number] [email or web address]- All Rights Reserved Reading location - IP/workstation name: [email or web address]
--- NOTE | 2018-01-11 20:31 | ER Document Report ---
ED Fall - General Chief Complaint: Fall Stated Complaint: FALL Time Seen by Provider: 01/11/18 19:39 Mode of Arrival: Wheelchair Information source: Patient Notes: 57-year-old female presents to ED for complaint of foot pain after falling downstairs about noontime today. She states that he has no pain anywhere except in the foot and ankle. She states she tripped and fell down 3 stairs. Left foot is bruised with some mild swelling. TRAVEL OUTSIDE OF THE [place] IN LAST 30 DAYS: No - HPI Occurred: This afternoon Where: Home, Outdoors Context: Tripped Associated symptoms: None Location of injury/pain: Ankle, Foot Quality of pain: Achy, Sharp Severity: Moderate Pain Level: 4 - Related data Allergies/Adverse Reactions: ciprofloxacin [Ciprofloxacin] Allergy (Intermediate, Verified 01/11/18 19:11) Hives, itching hydrocodone bitartrate [From Vicodin] Allergy (Intermediate, Verified 01/11/18 19:11) itching, headaches oxycodone HCl [From Percocet] Allergy (Intermediate, Verified 01/11/18 19:11) itching, headaches Past Medical History - General Information source: Patient - Social History Smoking Status: Former Smoker Cigarette use (# per day): No Chew tobacco use (# tins/day): No Smoking Education Provided: No Frequency of alcohol use: None Drug Abuse: None Occupation: Works at a [employer] Lives with: Family - Daughter Family History: CAD, DM, Hyperlipidemia, Hypertension, Thyroid Disfunction. denies: Arthritis, COPD, CVA, Malignancy Patient has suicidal ideation: No Patient has homicidal ideation: No - Past Medical History Cardiac Medical History: Reports: None Pulmonary Medical History: Reports: None EENT Medical History: Reports: None Neurological Medical History: Reports: Hx Cerebrovascular Accident - TIA, Hx Migraine Endocrine Medical History: Reports: None Renal/ Medical History: Reports: Hx Ovarian Cysts Malignancy Medical History: Reports: None GI Medical History: Reports: None Musculoskeltal Medical History: Reports None Skin Medical History: Reports None Psychiatric Medical History: Reports: Hx Depression Traumatic Medical History: Reports: None Infectious Medical History: Reports: None Past Surgical History: Reports: Hx Hysterectomy - Immunizations Hx Diphtheria, Pertussis, Tetanus Vaccination: Yes Review of Systems - Review of Systems Constitutional: No symptoms reported EENT: No symptoms reported Cardiovascular: No symptoms reported Respiratory: No symptoms reported Gastrointestinal: No symptoms reported Genitourinary: No symptoms reported Female Genitourinary: No symptoms reported Musculoskeletal: Other - Pain and swelling to foot and ankle Skin: Other - Swelling and ecchymosis to the left foot and ankle Hematologic/Lymphatic: No symptoms reported Neurological/Psychological: No symptoms reported -: Yes All other systems reviewed and negative Physical Exam - Vital signs Vitals: Temp Pulse Resp BP Pulse Ox 98.7 F 88 16 131/73 H 99 01/11/18 19:14 01/11/18 19:14 01/11/18 19:14 01/11/18 19:14 01/11/18 19:14 Interpretation: Normal - General General appearance: Appears well, Alert - HEENT Head: Normocephalic, Atraumatic Eyes: Normal Pupils: PERRL - Respiratory Respiratory status: No respiratory distress Chest status: Nontender Breath sounds: Normal Chest palpation: Normal - Cardiovascular Rhythm: Regular Heart sounds: Normal auscultation Murmur: No - Abdominal Inspection: Normal Distension: No distension Bowel sounds: Normal Tenderness: Nontender Organomegaly: No organomegaly - Back Back: Normal, Nontender - Extremities General upper extremity: Normal inspection, Nontender, Normal color, Normal ROM , Normal temperature General lower extremity: Normal temperature, Normal weight bearing. No: Aayush' s sign Ankle: Tender, Ecchymosis, Edema, Limited ROM. No: Abrasion, Deformity, Instability, Laceration, Positive Dobbins's test, Unable to bear weight Foot: Tender, Ecchymosis, Edema, Metatarsal compress. pain. No: Abrasion, Deformity, Instability, Laceration, Nail injury, Navicular tenderness, No evidence of FB, Puncture wound, Tender 5th metatarsal - Neurological Neuro grossly intact: Yes Cognition: Normal Orientation: AAOx4 Apolinar Coma Scale Eye Opening: Spontaneous Apolinar Coma Scale Verbal: Oriented Apolinar Coma Scale Motor: Obeys Commands [place] Coma Scale Total: 15 Speech: Normal Motor strength normal: LUE, RUE, LLE, RLE Sensory: Normal - Psychological Associated symptoms: Normal affect, Normal mood - Skin Skin Temperature: Warm Skin Moisture: Dry Skin Color: Normal Course - Vital Signs Vital signs: Temp Pulse Resp BP Pulse Ox 98.4 F 90 16 129/81 H 97 01/11/18 22:03 01/11/18 22:03 01/11/18 22:03 01/11/18 22:03 01/11/18 22:03 - Diagnostic Test Radiology reviewed: Image reviewed, Reports reviewed Procedures - Immobilization Left Foot Time completed: 22:05 Immobilizer type: Crutches Performed by: Other - brady Post-Proc Neuro Vasc Exam: Normal Alignment checked and good: Yes Discharge - Discharge Clinical Impression: Contusion of left foot Qualifiers: Encounter type: initial encounter Qualified Code(s): S90.32XA - Contusion of left foot, initial encounter HTN (hypertension) Qualifiers: Hypertension type: unspecified Qualified Code(s): I10 - Essential (primary) hypertension Condition: Stable Disposition: HOME, SELF-CARE Additional Instructions: Contusion Your injury has resulted in a contusion -- a crushing of the deep tissues. No injury to important structures was detected during the physician's exam. Contusions vary in the amount of pain they cause, and in the length of time required for healing. Typically, the area will become bruised, and will remain painful to touch for two or three weeks. However, most patients are back to working and playing within a few days. After the initial period of rest and cold-packs, your symptoms (together with the doctor's recommendations) will determine how rapidly you can get back to full activity. Usually this means "do what feels okay, but don't do things that hurt." If re-examination was recommended, it's important to follow up as instructed. Call the doctor or return any time if pain increases, if swelling becomes severe, if you develop numbness or weakness in an injured extremity, or if any other alarming symptoms occur. NIRAV WRAP: A compression dressing (nirav wrap) has been placed. This helps hold the area still. It limits swelling and internal bleeding. The wrap should be comfortably snug -- not tight. You should feel a sense of pressure, but not severe pain under the wrap. Unless the physician tells you otherwise, you can adjust the wrap for comfort. If the wrap causes symptoms suggesting it's too tight -- uncomfortable pressure, swelling or discoloration beyond the wrap, numbness, or severe pain - - you must loosen the wrap. If these symptoms don't resolve promptly, return for re-evaluation. USE OF CRUTCHES: The doctor has recommended that you not bear weight at this time. You will need to use crutches. Adjust the crutches so the tops come to about two inches under the armpit while you are standing upright. Use your hands -- not your armpits -- to support your weight. To get into a chair, support yourself with one crutch on the injured side. Hold the chair with the other hand, then lower yourself while putting all your weight on the good leg. Going up stairs is `good leg up, step up, then bring up crutches and bad leg.' Down stairs is `bad leg and crutches down, then bring good leg down.' If you develop numbness or swelling in an arm or hand, you are using the crutches incorrectly. Return if you are having any problems with the crutches. ICE & ELEVATION: Apply ice packs frequently against the painful area. Many different schedules are recommended, such as "20 minutes on, 20 minutes off" or "one hour ice, two hours rest." If you need to work, you may need to go longer between ice treatments. You should plan to have the area ice packed AT LEAST one- fourth of the time. The ice should be applied over the wrap, tape, or splint, or over a layer of cloth -- not directly against the skin. Some ice bags have a built-in cloth and can be put directly on the skin. Your injured part should be elevated as much as possible over the next 48 hours. Try to keep the injury above the level of the heart. Avoid use of the injured area. Elevation and rest will decrease the swelling. USE OF KGBH-ACM-SGMITQL IBUPROFEN: Ibuprofen (Advil, Nuprin, Medipren, Motrin IB) is a medication for fever and pain control. In addition, it has anti- inflammatory effects which may be beneficial, especially in the treatment of injuries. It's best to take ibuprofen with food. Persons with ulcer disease or allergy to aspirin should notify their physician of this before taking ibuprofen. Ibuprofen can be given every four to six hours, for a total of four doses daily. Age Pain or fever dose Antiinflammatory dose 6-8 yr 200 mg (1 tab) 200 mg (1 tab) 9-11 yr 200 mg (1 tab) 200-400 mg (1-2 tab) 11-14 yr 200-400 mg (1-2 tab) 400 mg (2 tab) 15-adult 400 mg (2 tab) 600 mg (3 tab) FOLLOW-UP CARE: If you have been referred to a physician for follow-up care, call the physician s office for an appointment as you were instructed or within the next two days. If you experience worsening or a significant change in your symptoms, notify the physician immediately or return to the Emergency Department at any time for re-evaluation. Forms: Elevated Blood Pressure, Return to Work Referrals: MATT SANCHEZ MD [Primary Care Provider] - Follow up as needed
[2018-01-11] MEDS ORDERED: ACETAMINOPHEN 325 MG TABLET PO ONE (20:33)
[2018-01-11 22:05] VITALS: BP 129/81
== END 2018-01-11 22:05 | disposition home or self-care (01) ==
LOC: ER 19:09
DX: S90.32XA Contusion of left foot, initial encounter (principal); S90.02XA Contusion of left ankle, initial encounter; W10.9XXA Fall (on) (from) unspecified stairs and steps, initial encounter; Y92.009 Unspecified place in unspecified non-institutional (private) residence as the place of occurrence of the external cause; I10 Essential (primary) hypertension; Z88.1 Allergy status to other antibiotic agents; Z88.5 Allergy status to narcotic agent; Z87.891 Personal history of nicotine dependence
CPT/HCPCS: 99283

== ENCOUNTER 2018-11-20 17:27 | Emergency (ER) | payer BC ==
--- NOTE | 2018-11-20 18:14 | ER Document Report ---
ED Medical Screen (RME) - General Chief Complaint: Chest Pain Stated Complaint: CHEST PAIN/SHORT OF BREATH Time Seen by Provider: 11/20/18 18:08 Mode of Arrival: Ambulatory Information source: Patient Notes: This is a 58-year-old female with a history of migraines, TIA who presents to the emergency room with left-sided chest pain and shortness of breath. Patient states she was getting around with a coworker and got elbowed into the left rib cage 2 days ago and states that it took her breath away initially. She states she has had a little like from it and started having more left-sided chest pain with palpitation as well as chest pain with inspiration. Patient does have bilateral breath sounds in triage. TRAVEL OUTSIDE OF THE [place] IN LAST 30 DAYS: No - Related Data Allergies/Adverse Reactions: ciprofloxacin [Ciprofloxacin] Allergy (Intermediate, Verified 11/20/18 17:30) Hives, itching hydrocodone bitartrate [From Vicodin] Allergy (Intermediate, Verified 11/20/18 17:30) itching, headaches oxycodone HCl [From Percocet] Allergy (Intermediate, Verified 11/20/18 17:30) itching, headaches Past Medical History - Past Medical History Cardiac Medical History: Denies: Hx Coronary Artery Disease, Hx Heart Attack, Hx Hypertension Pulmonary Medical History: Denies: Hx Asthma, Hx Bronchitis, Hx COPD, Hx Pneumonia Neurological Medical History: Reports: Hx Cerebrovascular Accident - TIA, Hx M igraine. Denies: Hx Seizures Renal/ Medical History: Reports: Hx Ovarian Cysts. Denies: Hx Peritoneal Dialysis Musculoskeltal Medical History: Denies Hx Arthritis Psychiatric Medical History: Reports: Hx Depression Past Surgical History: Reports: Hx Hysterectomy - Immunizations Hx Diphtheria, Pertussis, Tetanus Vaccination: Yes Physical Exam - Vital signs Vitals: Temp Pulse Resp BP Pulse Ox 98.4 F 66 18 147/86 H 100 11/20/18 17:47 11/20/18 17:47 11/20/18 17:47 11/20/18 17:47 11/20/18 17:47 Course - Vital Signs Vital signs: Temp Pulse Resp BP Pulse Ox 98.4 F 66 18 147/86 H 100 11/20/18 17:47 11/20/18 17:47 11/20/18 17:47 11/20/18 17:47 11/20/18 17:47
--- NOTE | 2018-11-20 18:41 | RADIOLOGY REPORT (SQ) ---
EXAM DESCRIPTION: CHEST 2 VIEWS COMPLETED DATE/TIME: 11/20/2018 6:33 pm REASON FOR STUDY: left chest pain and sob COMPARISON: 10/14/2014 EXAM PARAMETERS: NUMBER OF VIEWS: two views TECHNIQUE: Digital Frontal and Lateral radiographic views of the chest acquired. RADIATION DOSE: NA LIMITATIONS: none FINDINGS: LUNGS AND PLEURA: No opacities, masses or pneumothorax. No pleural effusion. MEDIASTINUM AND HILAR STRUCTURES: No masses or contour abnormalities. HEART AND VASCULAR STRUCTURES: Heart normal size. No evidence for failure. BONES: No acute findings. HARDWARE: None in the chest. OTHER: No other significant finding. IMPRESSION: NO ACUTE RADIOGRAPHIC FINDING IN THE CHEST. TECHNICAL DOCUMENTATION: JOB ID: [id number] [employer]- All Rights Reserved Reading location - IP/workstation name: [email or web address]
[2018-11-20 19:05] LABS: ABSOLUTE BASOPHILS # (AUTO) 0.1 10^3/uL (0.0-0.2); ABSOLUTE EOSINOPHILS # (AUTO) 0.1 10^3/uL (0.0-0.6); ABSOLUTE LYMPHOCYTES (AUTO) 3.1 10^3/uL (0.5-4.7); ABSOLUTE MONOCYTES (AUTO) 0.6 10^3/uL (0.1-1.4); ABSOLUTE NEUT (AUTO) 4.6 10^3/uL (1.7-8.2); BASOPHILS % (AUTO) 0.7 % (0-2); EOSINOPHILS % (AUTO) 1.5 % (0-6); HEMATOCRIT 38.8 % (36.0-47.0); HEMOGLOBIN 12.8 g/dL (12.0-15.5); MEAN CORPUSCULAR HEMOGLOBIN 27.6 pg (27.0-33.4); MEAN CORPUSCULAR VOLUME 84 fl (80-97); PLATELET COUNT 276 10^3/uL (150-450); RED BLOOD COUNT 4.64 10^6/uL (3.72-5.28); RED CELL DISTRIBUTION WIDTH 13.1 % (11.5-14.0); SEGMENTED NEUTROPHILS % (AUTO) 53.8 % (42-78); TOTAL CELLS COUNTED % (AUTO) 100 %; WHITE BLOOD COUNT 8.5 10^3/uL (4.0-10.5)
[2018-11-20 19:22] LABS: ALANINE AMINOTRANSFERASE 18 U/L (9-52); ALBUMIN 4.1 g/dL (3.5-5.0); ALKALINE PHOSPHATASE 102 U/L (38-126); ANION GAP 7 (5-19); ASPARTATE AMINO TRANSFERASE 20 U/L (14-36); BILIRUBIN,DIRECT 0.2 mg/dL (0.0-0.4); BILIRUBIN,TOTAL 0.2 mg/dL (0.2-1.3); BLOOD UREA NITROGEN 15 mg/dL (7-20); CALCIUM 9.5 mg/dL (8.4-10.2); CARBON DIOXIDE 25 mmol/L (22-30); CHLORIDE 110 mmol/L (98-107); CREATINE KINASE 113 U/L (30-135); GLUCOSE 98 mg/dL (75-110); POTASSIUM 3.9 mmol/L (3.6-5.0); SODIUM 141.6 mmol/L (137-145); TOTAL PROTEIN 7.4 g/dL (6.3-8.2)
[2018-11-20 19:33] LABS: CREATINE KINASE MB 0.41 ng/mL (<4.55)
[2018-11-20 19:35] LABS: TROPONIN I < 0.012 ng/mL
[2018-11-20] MEDS ORDERED: MORPHINE SULFATE 10 MG/ML INJ IV ONE (20:42)
[2018-11-20] MEDS ORDERED: ONDANSETRON HCL INJ/PF 4 MG/2 ML SDV IV ONE (20:42)
--- NOTE | 2018-11-20 21:46 | RADIOLOGY REPORT (SQ) ---
EXAM DESCRIPTION: CT CHEST ANGIOGRAPHY WITHOUT THEN WITH IV CONTRAST, three-dimensional reconstructions COMPLETED DATE/TME: 11/20/2018 20:42 CLINICAL HISTORY: 58 years, Female, chest pain This exam was performed according to our departmental dose-optimization program which includes automated exposure control, adjustment of the mA and/or kVp according to patient size and/or use of iterative reconstruction technique where applicable. FINDINGS: Pulmonary arteries are well opacified. No significant filling defects in the pulmonary arterial tree to suggest acute pulmonary embolism. Aorta is within normal limits. No dissection or aneurysm. No significant mediastinal, hilar or axillary lymphadenopathy. No pleural or pericardial effusions. The visualized upper abdominal organs demonstrate left renal cyst. Evaluation of the lung parenchyma demonstrates trachea and major airways to be patent. No suspicious lung nodules or masses. No consolidations to suggest pneumonia. IMPRESSION: No acute pulmonary embolism. No acute chest pathology.
[2018-11-20] MEDS ORDERED: KETOROLAC TROMETHAMINE INJ/PF 30 MG/1 ML SDV IV ONE (21:47)
[2018-11-20] MEDS ORDERED: DIAZEPAM INJ 10 MG/2 ML DISP.SYRIN IV ONE (21:47)
--- NOTE | 2018-11-20 21:49 | ER Document Report ---
ED General - General Chief Complaint: Chest Pain Stated Complaint: CHEST PAIN/SHORT OF BREATH Time Seen by Provider: 11/20/18 18:08 Mode of Arrival: Ambulatory Information source: Patient, Relative, [facility] Records Notes: 58-year-old female with history of migraines presents with left-sided chest pain that started 2 days prior to arrival. Patient states that she was joking around with a friend at work when she was accidentally elbowed in the chest right at the area where she is complaining of pain. Patient states since that time she has had intermittent stabbing pain that is worse with deep breathing, movement. Patient denies radiation of pain associated nausea, diaphoresis, lightheaded ness. She does report worsening of pain today. She denies history of PE, DVT, lower extremity swelling, hormonal therapy, history of cancer, recent travel, recent surgery. TRAVEL OUTSIDE OF THE [place] IN LAST 30 DAYS: No - HPI Onset: Other Onset/Duration: Gradual, Persistent, Worse Quality of pain: Stabbing Severity: Moderate Associated symptoms: Chest pain, Hurts to breath. denies: Nonproductive cough, Productive cough, Fever, Headache, Leg swelling, Nausea, Vomiting, Shortness of breath Exacerbated by: Movement, Walking, Coughing, Deep breathing Relieved by: Denies Similar symptoms previously: No Recently seen / treated by doctor: No - Related Data Allergies/Adverse Reactions: ciprofloxacin [Ciprofloxacin] Allergy (Intermediate, Verified 11/20/18 17:30) Hives, itching hydrocodone bitartrate [From Vicodin] Allergy (Intermediate, Verified 11/20/18 17:30) itching, headaches oxycodone HCl [From Percocet] Allergy (Intermediate, Verified 11/20/18 17:30) itching, headaches Past Medical History - General Information source: Patient - Social History Smoking Status: Former Smoker Frequency of alcohol use: None Drug Abuse: None Lives with: Family Family History: CAD, DM, Hyperlipidemia, Hypertension, Thyroid Disfunction. denies: Arthritis, COPD, CVA, Malignancy Patient has suicidal ideation: No Patient has homicidal ideation: No - Past Medical History Cardiac Medical History: Denies: Hx Coronary Artery Disease, Hx Heart Attack, Hx Hypertension Pulmonary Medical History: Denies: Hx Asthma, Hx Bronchitis, Hx COPD, Hx Pneumonia Neurological Medical History: Reports: Hx Cerebrovascular Accident - TIA, Hx Migraine. Denies: Hx Seizures Renal/ Medical History: Reports: Hx Ovarian Cysts. Denies: Hx Peritoneal Dialysis Musculoskeletal Medical History: Denies Hx Arthritis Psychiatric Medical History: Reports: Hx Depression Past Surgical History: Reports: Hx Hysterectomy - Immunizations Hx Diphtheria, Pertussis, Tetanus Vaccination: Yes Review of Systems - Review of Systems Notes: REVIEW OF SYSTEMS: CONSTITUTIONAL : Denies fever, chills, or sweats. Denies recent illness. Denies weight loss, recent hospitalizations. EENT: Denies visual changes, eye pain. Denies sore throat, oral lesions, difficulty swallowing. CARDIOVASCULAR: Denies palpitations. Denies lower extremity edema. RESPIRATORY: Denies cough. Denies wheezing. GASTROINTESTINAL: Denies abdominal pain or distention. Denies nausea, vomit ing, or diarrhea. Denies blood in vomitus, stools, or per rectum. Denies black, tarry stools. Denies constipation. GENITOURINARY: Denies difficulty urinating, painful urination, frequency, bloo d in urine, or vaginal discharge. MUSCULOSKELETAL: Denies back or neck pain or stiffness. Denies joint pain or swelling. SKIN: Denies rash, lesions or sores. HEMATOLOGIC : Denies easy bruising or bleeding. LYMPHATIC: Denies swollen glands. NEUROLOGICAL: Denies confusion or altered mental status. Denies loss of consciousness. Denies dizziness or lightheadedness. Denies headache. Denies weakness or paralysis. Denies problems difficulty with ambulation, slurred speech. Denies sensory loss, numbness, or tingling. Denies seizures. PSYCHIATRIC: Denies anxiety or stress. Denies depression, suicidal ideation, or homicidal ideation. Denies visual or auditory hallucinations. Physical Exam - Vital signs Vitals: Temp Pulse Resp BP Pulse Ox 98.4 F 66 18 147/86 H 100 11/20/18 17:47 11/20/18 17:47 11/20/18 17:47 11/20/18 17:47 11/20/18 17:47 Interpretation: Hypertensive - Notes Notes: PHYSICAL EXAMINATION: GENERAL: Well-appearing, well-nourished and in no acute distress. HEAD: Atraumatic, normocephalic. EYES: Pupils equal round and reactive to light, extraocular movements intact, conjunctiva are normal. ENT: Nares patent, oropharynx clear without exudates. Moist mucous membranes. NECK: Normal range of motion, supple without lymphadenopathy LUNGS: Breath sounds clear to auscultation bilaterally and equal. No wheezes rales or rhonchi. Anterior chest wall tender with palpation. No ecchymosis, crepitus. HEART: Regular rate and rhythm without murmurs ABDOMEN: Soft, nontender, nondistended abdomen. No guarding, no rebound. No masses appreciated. Female : deferred Musculoskeletal: Normal range of motion, no pitting or edema. No cyanosis. NEUROLOGICAL: Cranial nerves grossly intact. Normal speech, normal gait. Normal sensory, motor exams PSYCH: Normal mood, normal affect. SKIN: Warm, Dry, normal turgor, no rashes or lesions noted. Course - Re-evaluation Re-evalutation: Chest X-Ray 11/20/18 18:13 IMPRESSION: NO ACUTE RADIOGRAPHIC FINDING IN THE CHEST. Chest/Abdomen CTA 11/20/18 20:42 IMPRESSION: No acute pulmonary embolism. No acute chest pathology. Laboratory 11/20/18 11/20/18 11/20/18 18:49 18:49 18:49 WBC 8.5 RBC 4.64 Hgb 12.8 Hct 38.8 MCV 84 MCH 27.6 MCHC 33.0 RDW 13.1 Plt Count 276 Seg Neutrophils % 53.8 Lymphocytes % 37.0 Monocytes % 7.0 Eosinophils % 1.5 Basophils % 0.7 Absolute Neutrophils 4.6 Absolute Lymphocytes 3.1 Absolute Monocytes 0.6 Absolute Eosinophils 0.1 Absolute Basophils 0.1 Sodium 141.6 Potassium 3.9 Chloride 110 H Carbon Dioxide 25 Anion Gap 7 BUN 15 Creatinine 1.15 Est GFR ( Amer) 59 L Est GFR (Non-Af Amer) 49 L Glucose 98 Calcium 9.5 Total Bilirubin 0.2 Direct Bilirubin 0.2 Neonat Total Bilirubin Not Reportable Neonat Direct Bilirubin Not Reportable Neonat Indirect Bili Not Reportable AST 20 ALT 18 Alkaline Phosphatase 102 Creatine Kinase 113 CK-MB (CK-2) 0.41 Troponin I < 0.012 Total Protein 7.4 Albumin 4.1 Temp Pulse Resp BP Pulse Ox 98.4 F 66 14 117/68 98 11/20/18 17:47 11/20/18 17:47 11/20/18 22:18 11/20/18 22:18 11/20/18 22:18 11/20/18 22:21 58-year-old female with history of migraines presents with left-sided chest pain that started 2 days prior to arrival. Patient states that she was joking around with a friend at work when she was accidentally elbowed in the chest right at the area where she is complaining of pain. Patient states since that time she has had intermittent stabbing pain that is worse with deep breathing, movement. Patient denies radiation of pain associated nausea, diaphoresis, lightheade dness. She does report worsening of pain today. She denies history of PE, DVT, lower extremity swelling, hormonal therapy, history of cancer, recent travel, recent surgery. Vital signs reviewed upon arrival. Patient is afebrile, normotensive and not tachycardic or hypoxic. She does not appear toxic or dehydrated. She is in no acute distress. Previous medical records and nursing notes reviewed. CBC, CMP and cardiac enzymes within normal limits. EKG was obtained which showed the patient be in normal sinus rhythm. CTA of the chest showed no evidence of pulmonary embolism. Patient did receive morphine and Zofran prior to my exam which she states initially helps but pain returned. Kaitlynn duran then administered Toradol and Valium and reports great improvement of her pain. Patient asked for tomorrow off and was given a note to return to work on Saturday. Patient was evaluated and treated as appropriate for the patient's presenting symptoms and complaint, with consideration of any critical or life threatening conditions that may be associated with their obtained history and exam as noted above. All results were discussed with patient her family members. Patient provided the opportunity to ask questions, and express concerns. Patient was educated on treatments based on their presumed diagnosis as noted above. At this time we will discharge the patient with return precautions and follow-up recommendations. Verbal discharge instructions given a the bedside. Medication warnings reviewed. Patient is in agreement with this plan and has verbalized understanding of return precautions. After careful consideration I feel that that patient can be safely discharged from the emergency department, they were advised to followup with a primary care physician in 2-3 days. Dictation on this chart was performed using voice recognition software and may result in unintended grammatical, spelling, syntax or errors. HEART Score: History-0 ECG-0 Age-1 Risk Factors-1 Troponin-0 Total: 2 If HEART score is = 3 AND both troponin measurements are normal, the 30 day r isk of a major adverse cardiac event (all-cause mortality, myocardial infarction or need for coronary revascularization) is < 1% (Sensitivity 100%, NPV 100%). Chest pain in a patient without evidence of cardiac or other serious etiology on workup today. I discussed with patient that, based on their age, risk factors and emergency department testing today, the likelihood that their symptoms are r elated to a heart attack is very low (estimated risk of heart attack or over the next 30 days of less than 1%). The patient demonstrates decision making capacity and has verbalized an understanding of these risks to me. Based on this, the patient has chosen to follow-up as an outpatient. Usual chest pain return precautions reviewed. The patient states understanding and agreement with this plan. 11/20/18 22:22 - Vital Signs Vital signs: Temp Pulse Resp BP Pulse Ox 98.4 F 66 14 117/68 98 11/20/18 17:47 11/20/18 17:47 11/20/18 22:18 11/20/18 22:18 11/20/18 22:18 - Laboratory Result Diagrams: 11/20/18 18:49 11/20/18 18:49 Laboratory results interpreted by me: 11/20/18 18:49 Chloride 110 H Est GFR ( Amer) 59 L Est GFR (Non-Af Amer) 49 L - Diagnostic Test Radiology reviewed: Image reviewed, Reports reviewed - EKG Interpretation by Me EKG shows normal: Sinus rhythm Rate: Normal Rhythm: NSR When compared to previous EKG there are: No significant change Discharge - Discharge Clinical Impression: Acute chest wall pain, Elevated blood pressure reading Chest wall contusion Qualifiers: Encounter type: initial encounter Laterality: left Qualified Code(s): S20.212A - Contusion of left front wall of thorax, initial encounter Condition: Good Disposition: HOME, SELF-CARE Instructions: Anti-Inflammatory Medication ([facility]), Chest Wall Pain ([facility]), Chest Pain of Unclear Cause ([facility]) Additional Instructions: Follow up with your [id number] hours for further care or return to the ED IMMEDIATELY if symptoms worsen or you have any concerns. If you cannot afford to follow up with your primary care physician a list of low cost clinics have been provided at the end of your discharge papers as well. Most prescribed medications have multiple side effects. The safest thing to do is when filling your prescription speak to your pharmacist regarding possible interactions with your normal home medications and over the counter medications such as Ibuprofen, Tylenol, Benadryl. If you experience any symptoms that cause you discomfort or concern you should discontinue the medication immediately and return to the emergency room or call your primary care physician. Prescriptions: Diazepam [Valium 5 mg Tablet] 5 mg PO Q8H PRN #9 tablet PRN Reason: Ibuprofen [Motrin 600 Mg Tablet] 600 mg PO TID #15 tablet Forms: Elevated Blood Pressure, Return to Work Referrals: MATT SANCHEZ MD [Primary Care Provider] - Follow up as needed
[2018-11-20 22:19] VITALS: BP 117/68
--- NOTE | 2018-11-20 23:10 | EKG REPORT ---
SEVERITY:- NORMAL ECG - SINUS RHYTHM : Confirmed by: Ai Bajwa 20-Nov-2018 23:09:09
== END 2018-11-20 22:28 | disposition home or self-care (01) ==
LOC: ER 17:27
DX: S20.212A Contusion of left front wall of thorax, initial encounter (principal); R07.89 Other chest pain; R03.0 Elevated blood-pressure reading, without diagnosis of hypertension; R06.02 Shortness of breath; W51.XXXA Accidental striking against or bumped into by another person, initial encounter; Z87.891 Personal history of nicotine dependence
CPT/HCPCS: 93005; 99284; 96374; 96375; 36415; 82553; 82550; 85025; 80053; 84484; 71046; 71275; 93010; J3360; J1885; J2270; J2405

== ENCOUNTER 2019-11-24 12:47 | Emergency (ER) | payer BC ==
--- NOTE | 2019-11-24 13:24 | ER Document Report ---
ED Medical Screen (RME) - General Chief Complaint: Abdominal Pain Stated Complaint: ABDOMINAL PAIN Time Seen by Provider: 11/24/19 13:17 Primary Care Provider: MATT SANCHEZ MD [Primary Care Provider] - Follow up as needed Mode of Arrival: Ambulatory Information source: Patient Notes: 59-year-old female presents emergency department for complaints of right upper quadrant epigastric pain started last Saturday. She reports she went to see her doctor, Dr. Bauer, today and he sent her here for a gallbladder work-up. She reports she vomited on Saturday. She reports she is nauseated, could not even drink coffee this morning. Reports she took a sip but it made her very nauseated. She reports she has taken multiple [id number] medications without relief of symptoms. She reports she thought it was her heartburn acting up. Denies fever and diarrhea. Right upper quadrant and epigastric area tender to palpate I have greeted and performed a rapid initial assessment of this patient. A comprehensive ED assessment and evaluation of the patient, analysis of test results and completion of the medical decision making process will be conducted by additional ED providers. TRAVEL OUTSIDE OF THE [place] IN LAST 30 DAYS: No - Related Data Allergies/Adverse Reactions: ciprofloxacin [Ciprofloxacin] Allergy (Intermediate, Verified 11/24/19 13:17) Hives, itching hydrocodone bitartrate [From Vicodin] Allergy (Intermediate, Verified 11/24/19 13:17) itching, headaches oxycodone HCl [From Percocet] Allergy (Intermediate, Verified 11/24/19 13:17) itching, headaches Past Medical History - Past Medical History Cardiac Medical History: Denies: Hx Coronary Artery Disease, Hx Heart Attack, Hx Hypertension Pulmonary Medical History: Denies: Hx Asthma, Hx Bronchitis, Hx COPD, Hx Pneumonia Neurological Medical History: Reports: Hx Cerebrovascular Accident - TIA, Hx Migraine. Denies: Hx Seizures Renal/ Medical History: Reports: Hx Ovarian Cysts. Denies: Hx Peritoneal Dialysis Musculoskeltal Medical History: Denies Hx Arthritis Psychiatric Medical History: Reports: Hx Depression Past Surgical History: Reports: Hx Hysterectomy - Immunizations Hx Diphtheria, Pertussis, Tetanus Vaccination: Yes Physical Exam - Vital signs Vitals: Temp Pulse Resp BP Pulse Ox 97.9 F 69 16 124/68 100 11/24/19 12:51 11/24/19 12:51 11/24/19 12:51 11/24/19 12:51 11/24/19 12:51 Course - Vital Signs Vital signs: Temp Pulse Resp BP Pulse Ox 97.9 F 69 16 124/68 100 11/24/19 12:51 11/24/19 12:51 11/24/19 12:51 11/24/19 12:51 11/24/19 12:51 Doctor's Discharge - Discharge Referrals: MATT SANCHEZ MD [Primary Care Provider] - Follow up as needed
[2019-11-24 13:54] LABS: ABSOLUTE BASOPHILS # (AUTO) 0.1 10^3/uL (0.0-0.2); ABSOLUTE EOSINOPHILS # (AUTO) 0.2 10^3/uL (0.0-0.6); ABSOLUTE LYMPHOCYTES (AUTO) 2.3 10^3/uL (0.5-4.7); ABSOLUTE MONOCYTES (AUTO) 0.6 10^3/uL (0.1-1.4); ABSOLUTE NEUT (AUTO) 6.7 10^3/uL (1.7-8.2); BASOPHILS % (AUTO) 1.1 % (0-2); HEMATOCRIT 43.5 % (36.0-47.0); HEMOGLOBIN 14.5 g/dL (12.0-15.5); LYMPHOCYTES % (AUTO) 23.2 % (13-45); MEAN CORPUSCULAR HGB CONC 33.2 g/dL (32.0-36.0); MEAN CORPUSCULAR VOLUME 84 fl (80-97); MONOCYTES % (AUTO) 5.9 % (3-13); PLATELET COUNT 286 10^3/uL (150-450); RED BLOOD COUNT 5.16 10^6/uL (3.72-5.28); RED CELL DISTRIBUTION WIDTH 12.9 % (11.5-14.0); SEGMENTED NEUTROPHILS % (AUTO) 67.8 % (42-78); TOTAL CELLS COUNTED % (AUTO) 100 %; WHITE BLOOD COUNT 9.8 10^3/uL (4.0-10.5)
[2019-11-24 14:06] LABS: APPEARANCE,URINE CLEAR; BILIRUBIN,URINE NEGATIVE (NEGATIVE); COLOR,URINE YELLOW; GLUCOSE, URINE NEGATIVE (NEGATIVE); KETONES,URINE NEGATIVE (NEGATIVE); LEUKOCYTE ESTERASE,URINE NEGATIVE (NEGATIVE); NITRITE,URINE NEGATIVE (NEGATIVE); PROTEIN,URINE NEGATIVE (NEGATIVE); URIC ACID CRYSTALS,URINE FEW /HPF; URINE SPECIFIC GRAVITY 1.014; UROBILINOGEN,URINE NEGATIVE mg/dL (<2.0)
[2019-11-24] MEDS ORDERED: KETOROLAC TROMETHAMINE INJ/PF 30 MG/1 ML SDV IV ONE (14:07)
[2019-11-24] MEDS ORDERED: ONDANSETRON HCL INJ/PF 4 MG/2 ML SDV IV ONE (14:07)
[2019-11-24] MEDS ORDERED: NORMAL SALINE 1000 ML 1,000 ML IV ONE (14:07)
[2019-11-24 14:18] LABS: ALBUMIN 4.1 g/dL (3.5-5.0); ALKALINE PHOSPHATASE 102 U/L (38-126); ANION GAP 8 (5-19); ASPARTATE AMINO TRANSFERASE 23 U/L (14-36); BILIRUBIN,DIRECT 0.3 mg/dL (0.0-0.4); BILIRUBIN,TOTAL 0.4 mg/dL (0.2-1.3); BLOOD UREA NITROGEN 13 mg/dL (7-20); CALCIUM 9.7 mg/dL (8.4-10.2); CARBON DIOXIDE 26 mmol/L (22-30); CHLORIDE 107 mmol/L (98-107); GLUCOSE 93 mg/dL (75-110); POTASSIUM 4.1 mmol/L (3.6-5.0)
--- NOTE | 2019-11-24 15:25 | RADIOLOGY REPORT (SQ) ---
EXAM DESCRIPTION: CT ABD/PELVIS NO ORAL OR IV COMPLETED DATE/TIME: 11/24/2019 2:59 pm REASON FOR STUDY: right flank pain COMPARISON: None. TECHNIQUE: CT scan of the abdomen and pelvis performed without intravenous or oral contrast. Images reviewed with lung, soft tissue, and bone windows. Reconstructed coronal and sagittal MPR images revi ewed. All images stored on PACS. All CT scanners at this facility use dose modulation, iterative reconstruction, and/or weight based d osing when appropriate to reduce radiation dose to as low as reasonably achievable (ALARA). [facility]: Dose Right [facility]: CareDose [facility]: Dose Right [facility]: Teradose 4D [facility]: Smart Protochips RADIATION DOSE: CT Rad equipment meets quality standard of care and radiation dose reduction techniq ues were employed. CTDIvol: 7.8 mGy. DLP: 375 mGy-cm.mGy. LIMITATIONS: None. FINDINGS: LOWER CHEST: No significant findings. No nodules or infiltrates. NON-CONTRASTED LIVER, SPLEEN, ADRENALS: Evaluation limited by lack of IV contrast. No identified sign ificant masses. PANCREAS: No masses. No peripancreatic inflammatory changes. GALLBLADDER: No identified stones by CT criteria. No inflammatory changes to suggest cholecystitis. RIGHT KIDNEY AND URETER: No suspicious masses. Assessment limited by lack of IV contrast. No signif icant calcifications. No hydronephrosis or hydroureter. LEFT KIDNEY AND URETER: No solid masses. 3 cysts are present. No significant calcifications. No hydronephrosis or hydroureter. AORTA AND RETROPERITONEUM: No aneurysm. No retroperitoneal masses or adenopathy. BOWEL AND PERITONEAL CAVITY: No obvious masses or inflammatory changes. No free fluid. APPENDIX: Not identified. PELVIS, BLADDER, AND ABDOMINAL WALL:No abnormal masses. No free fluid. Bladder normal. BONES: No significant findings. OTHER: No other significant finding. IMPRESSION: NO SIGNIFICANT OR ACUTE PROCESS IN THE ABDOMEN OR PELVIS. COMMENT: Quality ID # [id number]: Final reports with documentation of one or more dose reduction techniques (e.g., Automated exposure control, adjustment of the mA and/or kV according to patient size, use of iterative reconstruction technique) TECHNICAL DOCUMENTATION: JOB ID: [id number] [employer]- All Rights Reserved Reading location - IP/workstation name: [email or web address]
--- NOTE | 2019-11-24 16:28 | RADIOLOGY REPORT (SQ) ---
EXAM DESCRIPTION: U/S ABDOMEN LIMITED W/O DOP COMPLETED DATE/TIME: 11/24/2019 4:15 pm REASON FOR STUDY: ruq, epigastric pain COMPARISON: None TECHNIQUE: Dynamic and static grayscale images acquired of the abdomen and recorded on PACS. Additio nal selected color Doppler and spectral images recorded. LIMITATIONS: Study limited due to acoustical interference from fat or from air in the bowel. FINDINGS: PANCREAS: Poorly seen secondary to acoustical interference from fat or from air in the bow el. No visualized masses. Duct normal caliber as seen. LIVER: No masses. No dilated ducts. LIVER VASCULATURE: Normal directional flow of the main portal vein and hepatic veins. GALLBLADDER: No stones. Normal wall thickness. No pericholecystic fluid. ULTRASOUND-DETECTED CHI'S SIGN: Negative. INTRAHEPATIC DUCTS AND COMMON DUCT:CBD and intrahepatic ducts normal caliber. No filling defects. INFERIOR VENA CAVA: Normal flow. AORTA: No aneurysm. RIGHT KIDNEY: Normal size. Normal echogenicity. No solid or suspicious masses. No hydronephrosis. No calcifications. PERITONEAL AND PLEURAL SPACES: No ascites or effusions. OTHER: No other significant finding. IMPRESSION: NO SIGNIFICANT FINDING IN THE VISUALIZED ABDOMEN. TECHNICAL DOCUMENTATION: JOB ID: [id number] [employer]- All Rights Reserved Reading location - IP/workstation name: [email or web address]
--- NOTE | 2019-11-24 18:35 | ER Document Report ---
ED General - General Chief Complaint: Epigastric Pain Stated Complaint: ABDOMINAL PAIN Time Seen by Provider: 11/24/19 13:17 Primary Care Provider: MATT SANCHEZ MD [Primary Care Provider] - Follow up as needed Mode of Arrival: Ambulatory Information source: Patient TRAVEL OUTSIDE OF THE [place] IN LAST 30 DAYS: No - HPI Notes: Patient presents with epigastric and right upper quadrant abdominal pain. States she has had this for 3 to 4 days. She states it has mostly been constant and it is made worse with eating and better without eating. Some nausea and one episode of vomiting. No loose stools or diarrhea. No rashes or fevers. No chest pain shortness of breath. No cough cold or congestion. No problems with urination. She has no vaginal symptoms. Patient's pain is been a burning sensation. It is moderate in intensity. It has been intermittently waxing and waning but rather constant throughout the day. - Related Data Allergies/Adverse Reactions: ciprofloxacin [Ciprofloxacin] Allergy (Intermediate, Verified 11/24/19 13:17) Hives, itching hydrocodone bitartrate [From Vicodin] Allergy (Intermediate, Verified 11/24/19 13:17) itching, headaches oxycodone HCl [From Percocet] Allergy (Intermediate, Verified 11/24/19 13:17) itching, headaches Home Medications: [facility]/ [address] Past Medical History - General Information source: Patient - Social History Smoking Status: Never Smoker Chew tobacco use (# tins/day): No Frequency of alcohol use: None Drug Abuse: None Family History: CAD, DM, Hyperlipidemia, Hypertension, Thyroid Disfunction. denies: Arthritis, COPD, CVA, Malignancy Patient has suicidal ideation: No Patient has homicidal ideation: No - Past Medical History Cardiac Medical History: Denies: Hx Coronary Artery Disease, Hx Heart Attack, Hx Hypertension Pulmonary Medical History: Denies: Hx Asthma, Hx Bronchitis, Hx COPD, Hx Pneumonia Neurological Medical History: Reports: Hx Cerebrovascular Accident - TIA, Hx Migraine. Denies: Hx Seizures Renal/ Medical History: Reports: Hx Ovarian Cysts. Denies: Hx Peritoneal Dialysis Musculoskeletal Medical History: Denies Hx Arthritis Psychiatric Medical History: Reports: Hx Depression Past Surgical History: Reports: Hx Hysterectomy, Hx Orthopedic Surgery - r wrist - Immunizations Hx Diphtheria, Pertussis, Tetanus Vaccination: Yes Review of Systems - Review of Systems Constitutional: denies: Chills, Fever Cardiovascular: denies: Chest pain, Palpitations Respiratory: denies: Cough, Short of breath -: Yes All other systems reviewed and negative Physical Exam - Vital signs Vitals: Temp Pulse Resp BP Pulse Ox 97.9 F 69 16 124/68 100 11/24/19 12:51 11/24/19 12:51 11/24/19 12:51 11/24/19 12:51 11/24/19 12:51 Interpretation: Normal - General General appearance: Appears well, Alert - HEENT Head: Normocephalic, Atraumatic Eyes: Normal Pupils: PERRL - Respiratory Respiratory status: No respiratory distress Chest status: Nontender Breath sounds: Normal Chest palpation: Normal - Cardiovascular Rhythm: Regular Heart sounds: Normal auscultation Murmur: No - Abdominal Inspection: Normal Distension: No distension Bowel sounds: Normal Tenderness: Tender - Patient has some mild tenderness to palpation of the epigastric and right upper quadrant areas. No rebound or guarding. Organomegaly: No organomegaly - Back Back: Normal, Nontender - Extremities General upper extremity: Normal inspection, Nontender, Normal color, Normal ROM, Normal temperature General lower extremity: Normal inspection, Nontender, Normal color, Normal ROM, Normal temperature, Normal weight bearing. No: Aayush's sign - Neurological Neuro grossly intact: Yes Cognition: Normal Orientation: AAOx4 Apolinar Coma Scale Eye Opening: Spontaneous Apolinar Coma Scale Verbal: Oriented Apolinar Coma Scale Motor: Obeys Commands Rombauer Coma Scale Total: 15 Speech: Normal Motor strength normal: LUE, RUE, LLE, RLE Sensory: Normal - Psychological Associated symptoms: Normal affect, Normal mood - Skin Skin Temperature: Warm Skin Moisture: Dry Skin Color: Normal Course - Re-evaluation Re-evalutation: 11/24/19 18:32 Patient's work-up is unremarkable other than some blood in the urine. It is possible patient has passed a kidney stone although she has had no other symptoms suggestive of a kidney stone. She is also had no flank pain. In addition the pain is worse with eating. It is possible the patient has an ulcer and I have instructed her that she may possibly need an endoscopy. I will try the patient on a course of Carafate. - Vital Signs Vital signs: Temp Pulse Resp BP Pulse Ox 97.9 F 69 16 124/68 100 01/21/20 12:51 11/24/19 12:51 11/24/19 12:51 11/24/19 12:51 11/24/19 12:51 - Laboratory Result Diagrams: 11/24/19 13:34 11/24/19 13:34 Laboratory results interpreted by me: 11/24/19 13:29 Urine Blood LARGE H - Diagnostic Test Radiology reviewed: Image reviewed, Reports reviewed - EKG Interpretation by Me EKG shows normal: Sinus rhythm Rate: Normal - 59 Rhythm: NSR Perkins/QRS: No: Right axis deviation, Left axis deviation Discharge - Discharge Clinical Impression: Epigastric pain Condition: Stable Disposition: HOME, SELF-CARE Instructions: Abdominal Pain ([facility]) Additional Instructions: If your pain continues please discuss referral to gastroenterology with your primary care doctor Prescriptions: Sucralfate [Carafate] 1 gm PO QID 14 Days #200 ml Forms: Return to Work Referrals: MATT SANCHEZ MD [Primary Care Provider] - Follow up in 1 week
[2019-11-24 19:34] VITALS: BP 137/69
--- NOTE | 2019-11-24 19:35 | EKG REPORT ---
SEVERITY:- NORMAL ECG - SINUS RHYTHM : Confirmed by: Chucho Biswas MD 24-Nov-2019 19:34:36
== END 2019-11-24 19:31 | disposition home or self-care (01) ==
LOC: ER 12:47
DX: R10.13 Epigastric pain (principal); R10.11 Right upper quadrant pain; R11.2 Nausea with vomiting, unspecified
CPT/HCPCS: 93005; 99284; 96361; 96374; 96375; 36415; 83690; 85025; 80053; 81001; 76705; 74176; 93010; J1885; J2405; J7030

== ENCOUNTER → 2020-02-22 | Outpatient (CLI) | payer BC ==
--- NOTE | 2020-02-22 10:52 | RADIOLOGY REPORT (SQ) ---
EXAM DESCRIPTION: CT ABD/PELVIS COMBO IMAGES COMPLETED DATE/TIME: 02/22/2020 10:34 am REASON FOR STUDY: R31.9 HEMATURIA, UNSPECIFIED R31.9 HEMATURIA, UNSPECIFIED COMPARISON: 05/14/17 TECHNIQUE: CT scan of the abdomen and pelvis performed with and without intravenous contrast, and wi th oral contrast. Contrasted imaging performed helical scanning technique and dynamic intravenous con trast injection. Images reviewed with lung, soft tissue, and bone windows. Reconstructed coronal and sagittal MPR images reviewed. Delayed images for evaluation of the urinary system also acquired. All images stored on PACS. All CT scanners at this facility use dose modulation, iterative reconstruction, and/or weight based d osing when appropriate to reduce radiation dose to as low as reasonably achievable (ALARA). [facility]: Dose Right [facility]: CareDose [facility]: Dose Right [facility]: Teradose 4D [facility]: [place]res CONTRAST TYPE AND DOSE: contrast/concentration: Isovue 350.00 mg/ml; Total Contrast Delivered: 87.0 ml; Total Saline Delivered: 69.0 ml RENAL FUNCTION: Creatinine 1.2 RADIATION DOSE: CT Rad equipment meets quality standard of care and radiation dose reduction techniq ues were employed. CTDIvol: 9.3 - 9.7 mGy. DLP: 1443 mGy-cm. . LIMITATIONS: None. FINDINGS: LOWER CHEST: No significant findings. No nodules or infiltrates. LIVER: Normal size. No masses. No dilated ducts. SPLEEN: Normal size. No focal lesions. PANCREAS: No masses. No significant calcifications. No adjacent inflammation or peripancreatic fluid collections. Pancreatic duct not dilated. GALLBLADDER: No identified stones by CT criteria. No inflammatory changes to suggest cholecystitis. ADRENAL GLANDS: No significant masses or asymmetry. RIGHT KIDNEY AND URETER: No definite solid masses. Few punctate cortical hypodense lesions, likely c yst but too small to characterize. No significant calcifications. No hydronephrosis or hydroureter . LEFT KIDNEY AND URETER: No definite solid masses. Multiple renal cysts, largest measuring 4.7 cm. A dditional subcentimeter cortical lesions, likely cyst but too small to characterize. No significant calcifications. No hydronephrosis or hydroureter. AORTA AND VESSELS: Scattered aortoiliac atherosclerosis without aneurysm. No dissection. Renal arteri es, SMA, celiac without stenosis. RETROPERITONEUM: No retroperitoneal adenopathy, hemorrhage or masses. BOWEL AND PERITONEAL CAVITY: No focal bowel wall thickening. No evidence of intestinal obstruction. Moderate formed stool throughout the colon. APPENDIX: Normal. PELVIS: Unremarkable urinary bladder. No free fluid. No lymphadenopathy. No mass. ABDOMINAL WALL: No masses. No hernias. BONES: No evidence of acute bony abnormality. No suspicious lytic or blastic osseous lesions. OTHER: No other significant finding. IMPRESSION: 1. Bilateral renal cysts, largest measuring 4.7 cm on the left. Additional subcentimete r hypodense lesions, likely cysts but too small to characterize. No findings to explain hematuria. If hematuria persists, cystoscopy should be considered. 2. No other evidence of acute intra-abdominal/pelvic process. TECHNICAL DOCUMENTATION: JOB ID: [id number] Quality ID # [id number]: Final reports with documentation of one or more dose reduction techniques (e.g., Au tomated exposure control, adjustment of the mA and/or kV according to patient size, use of iterative reconstruction technique) 2010 [employer]- All Rights Reserved Reading location - IP/workstation name: [email or web address]
== END ==
LOC: RAD 10:03
PROVIDERS: ATTEND Urology
DX: R31.9 Hematuria, unspecified (principal)
CPT/HCPCS: 74178; 82565

== ENCOUNTER 2020-08-31 08:50 | Emergency (ER) | payer BC ==
--- NOTE | 2020-08-31 09:04 | ER Document Report ---
ED General - General Chief Complaint: Headache Stated Complaint: HEADACHE Time Seen by Provider: 08/31/20 09:03 Primary Care Provider: ALBERT HSU MD [NO LOCAL MD] - Follow up as needed Notes: Patient presents with acute onset left-sided facial numbness tingling and left arm and leg weakness. Happened this morning at 8 AM examined by me at 905 stroke alert for me nursing. No blood thinners. History of mild headache this morning as well as had migraines for years but they never come with neuro deficits and has had a true TIA in the past. No recent surgery no rectal bleeding no history of brain mass or aneurysm. TRAVEL OUTSIDE OF THE [place] IN LAST 30 DAYS: No - Related Data Allergies/Adverse Reactions: ciprofloxacin [Ciprofloxacin] Allergy (Intermediate, Verified 11/24/19 13:17) Hives, itching hydrocodone bitartrate [From Vicodin] Allergy (Intermediate, Verified 11/24/19 13:17) itching, headaches oxycodone HCl [From Percocet] Allergy (Intermediate, Verified 11/24/19 13:17) itching, headaches Past Medical History - General Information source: Patient - Social History Smoking Status: Former Smoker Family History: CAD, DM, Hyperlipidemia, Hypertension, Thyroid Disfunction. denies: Arthritis, COPD, CVA, Malignancy - Past Medical History Cardiac Medical History: Denies: Hx Coronary Artery Disease, Hx Heart Attack, Hx Hypertension Pulmonary Medical History: Denies: Hx Asthma, Hx Bronchitis, Hx COPD, Hx Pneumonia Neurological Medical History: Reports: Hx Cerebrovascular Accident - TIA, Hx Migraine. Denies: Hx Seizures Renal/ Medical History: Reports: Hx Ovarian Cysts. Denies: Hx Peritoneal Dialysis Musculoskeletal Medical History: Denies Hx Arthritis Psychiatric Medical History: Reports: Hx Depression Past Surgical History: Reports: Hx Hysterectomy, Hx Orthopedic Surgery - r wrist - Immunizations Hx Diphtheria, Pertussis, Tetanus Vaccination: Yes Review of Systems - Review of Systems Notes: REVIEW OF SYSTEMS GEN: Denies fever, chills, weight loss ENT: Denies sore throat, nasal discharge, ear pain EYES: Denies blurry vision, eye pain, discharge CV: Denies chest pain, palpitations, edema RESP: Denies cough, shortness of breath, wheezing GI: Denies abdominal pain, nausea, vomiting, diarrhea MSK: Denies joint pain/swelling, edema, SKIN: Denies rash, skin lesions LYMPH: Denies swollen glands/lymph nodes NEURO: See HPI PSYCH: Denies depression, suicidal or homicidal ideation PHYSICAL EXAMINATION General: No acute distress, well-nourished Head: Atraumatic, normocephalic ENT: Mouth normal, oropharynx moist, no exudates or tonsillar enlargement Eyes: Conjunctiva normal, pupils equal, lids normal Neck: No JVD, supple, no guarding CVS: Normal rate, regular rhythm, no murmurs Resp: No resp distress, equal and normal breath sounds bilaterally GI: Nondistended, soft, no tenderness to palpation, no rebound or guarding Ext: No deformities, no edema, normal range of motion in upper and lower ext Back: No CVA or midline TTP Skin: No rash, warm Lymphatic: No lymphadeopathy noted Neuro: Awake, alert. Face symmetric. GCS 15. Left facial droop. Arm and leg on the left drift to the bed prior to 10 seconds. No slurred speech visual cortez intact. NIH stroke score equals 5 rate score equals 3 Physical Exam - Vital signs Vitals: Pulse Resp BP Pulse Ox 60 13 158/98 H 100 08/31/20 09:10 08/31/20 09:10 08/31/20 09:10 08/31/20 09:10 Course - Re-evaluation Re-evalutation: 08/31/20 10:10 Evaluated patient medially on arrival. Signs of acute stroke are present. Family is in the room. Taken to CT: Negative by radiology The patient was started on IV TPA after speaking with Dr. Norman Rodríguez from neurology. I went to examine her again and her symptoms were improving some, but given her pronounced left-sided weakness at baseline today I think that the TPA still indicated rather than it being relatively contraindicated secondary to rapidly improving symptoms. She has no risk factors is otherwise young and healthy. The patient was given TPA her labs were essentially normal. At 10:10 AM yue Almaguer is here to pick her up taken in [place]. Dr. Rodríguez agrees. There was some sense that we were supposed to be getting CTAs of the head and neck on these patients but I had ordered that when she got here, but secondary to nursing family in time with radiology issues apparently she did not get the CT and I am just finding this out at 10:10 AM. I am going to send her anyway because I think delaying her care or transport for the CTA is not in her favor especially that she has TPA hanging and is improving. - Vital Signs Vital signs: Temp Pulse Resp BP Pulse Ox 60 13 158/98 H 100 08/31/20 09:10 08/31/20 09:10 08/31/20 09:10 08/31/20 09:10 - Laboratory Result Diagrams: 08/31/20 09:18 08/31/20 09:18 Laboratory results interpreted by me: 08/31/20 09:18 Sodium 136.4 L Glucose 118 H Albumin 3.4 L Critical Care Note - Critical Care Note Total time excluding time spent on procedures (mins): 34 Comments: The above patient is critically ill. Not including procedures, but including direct re-evaluations, speaking with patient and/or consultants, interpreting results, and documenting, I spent the total amount of minute listed listed above on critical care time Discharge - Discharge Clinical Impression: Stroke Qualifiers: CVA mechanism: embolism Precerebral and cerebral artery: unspecified cerebral artery Qualified Code(s): I63.40 - Cerebral infarction due to embolism of unspecified cerebral artery Condition: Critical Disposition: [facility] Referrals: ALBERT HSU MD [NO LOCAL MD] - Follow up as needed
[2020-08-31] MEDS ORDERED: ALTEPLASE INJ 100 MG VIAL IV ONE (09:10)
[2020-08-31 09:38] LABS: INTERNATIONAL RATION (INR) 0.98; PARTIAL THROMBOPLASTIN TIME 27.3 SEC (23.5-35.8); PROTHROMBIN TIME 13.2 SEC (11.4-15.4)
[2020-08-31 09:48] LABS: ABSOLUTE EOSINOPHILS # (AUTO) 0.1 10^3/uL (0.0-0.6); ABSOLUTE LYMPHOCYTES (AUTO) 1.9 10^3/uL (0.5-4.7); ABSOLUTE MONOCYTES (AUTO) 0.5 10^3/uL (0.1-1.4); ABSOLUTE NEUT (AUTO) 3.9 10^3/uL (1.7-8.2); BASOPHILS % (AUTO) 0.8 % (0-2); EOSINOPHILS % (AUTO) 0.9 % (0-6); HEMATOCRIT 38.2 % (36.0-47.0); HEMOGLOBIN 12.5 g/dL (12.0-15.5); LYMPHOCYTES % (AUTO) 29.9 % (13-45); MEAN CORPUSCULAR HGB CONC 32.6 g/dL (32.0-36.0); MEAN CORPUSCULAR VOLUME 83 fl (80-97); MONOCYTES % (AUTO) 7.9 % (3-13); PLATELET COUNT 270 10^3/uL (150-450); RED BLOOD COUNT 4.61 10^6/uL (3.72-5.28); RED CELL DISTRIBUTION WIDTH 13.3 % (11.5-14.0); SEGMENTED NEUTROPHILS % (AUTO) 60.5 % (42-78); TOTAL CELLS COUNTED % (AUTO) 100 %; WHITE BLOOD COUNT 6.4 10^3/uL (4.0-10.5)
--- NOTE | 2020-08-31 09:48 | RADIOLOGY REPORT (SQ) ---
EXAM DESCRIPTION: CTA HEAD IMAGES COMPLETED DATE/TIME: 08/31/2020 9:22 am REASON FOR STUDY: stroke COMPARISON: None. TECHNIQUE: Axial images acquired through the brain without and with intravenous contrast. Images re viewed with bone, brain and subdural windows. Additional sagittal and coronal reconstructions were g enerated. Images stored on PACS. CT angio [place] was performed. Thin section postcontrast CT images were reviewed with maxim um intensity projected images of the [place] in multiple orientations. All CT scanners at this facility use dose modulation, iterative reconstruction, and/or weight based d osing when appropriate to reduce radiation dose to as low as reasonably achievable (ALARA). [facility]: Dose Right [facility]: CareDose [facility]: Dose Right [facility]: Teradose 4D [facility]: TrenDemon CONTRAST TYPE AND DOSE: contrast/concentration: Isovue 350.00 mmol/ml; Total Contrast Delivered: 69. 9 ml; Total Saline Delivered: 70.0 ml RENAL FUNCTION: Lab for bypass due to patient's clinical condition. RADIATION DOSE: CT Rad equipment meets quality standard of care and radiation dose reduction techniq ues were employed. CTDIvol: 14.9 - 53.2 mGy. DLP: 1631 mGy-cm.. LIMITATIONS: None. FINDINGS: VENTRICLES: Normal size and contour. CEREBRUM: No masses. No hemorrhage. No midline shift. No evidence for acute infarction. Normal gra y/white matter differentiation. No areas of low density in the white matter. CEREBELLUM: No masses. No hemorrhage. No alteration of density. No evidence for acute infarction. No enhancing lesions. EXTRA-AXIAL SPACES: No fluid collections. No enhancing lesions. ORBITS AND GLOBE: No intra- or extraconal masses. Normal contour of globe without masses. CALVARIUM: No fracture. PARANASAL SINUSES: No fluid or mucosal thickening. SOFT TISSUES: No mass or hematoma. OTHER: No other significant finding. CTA COW: [place]: The anterior, middle, posterior cerebral arteries are all patent. No evidence of a neurysm or focal stenosis. POSTERIOR CIRCULATION: The distal vertebral arteries are patent as is the basilar artery. No aneurysm . OTHER: No other significant finding. IMPRESSION: NORMAL BRAIN CT WITH AND WITHOUT CONTRAST. NO CTA EVIDENCE OF STENOSIS OR ANEURYSM OF THE [place]. EVIDENCE OF ACUTE STROKE: NO. COMMENT: Pertinent positive or negative findings of the imaging study reported as a CRITICAL EXAM t o LELIA SILMAN MD [id number] hours on 08/31/2020. Category of Critical Exam: Code stroke TECHNICAL DOCUMENTATION: JOB ID: [id number] Quality ID # 436: Final reports with documentation of one or more dose reduction techniques (e.g., Au tomated exposure control, adjustment of the mA and/or kV according to patient size, use of iterative reconstruction technique) 2010 [employer]- All Rights Reserved Reading location - IP/workstation name: [email or web address]
--- NOTE | 2020-08-31 09:50 | RADIOLOGY REPORT (SQ) ---
EXAM DESCRIPTION: CTA NECK IMAGES COMPLETED DATE/TIME: 08/31/2020 9:22 am REASON FOR STUDY: stroke COMPARISON: None. TECHNIQUE: Axial dynamic scanning technique with dynamic contrast enhancement through the extra-aircraft instrument engineer nial carotid and vertebral arteries. Multiplanar reconstruction. 3-D MIPS and Volume-rendered imag es acquired at the workstation and saved to PACS. Images are reviewed in soft tissue, bone, lung w indows. All CT scanners at this facility use dose modulation, iterative reconstruction, and/or weight based d osing when appropriate to reduce radiation dose to as low as reasonably achievable (ALARA). [facility]: Dose Right [facility]: CareDose [facility]: Dose Right [facility]: Teradose 4D [facility]: Everyone Counts CONTRAST TYPE AND DOSE: 70 mL Omnipaque 300- low osmolar. RENAL FUNCTION: Not performed due to patient's clinical condition. LIMITATIONS: None. FINDINGS: AORTIC ARCH: Normal three-vessel origin. Bilateral subclavian arteries are patent. No d issection. RIGHT CAROTIDS: Patent common, internal and external carotid arteries without suggestion of significa nt stenosis or irregular plaque. No dissection. RIGHT VERTEBRAL: Patent. No dissection. LEFT CAROTIDS: Patent common, internal and external carotid arteries without suggestion of significan t stenosis or irregular plaque. No dissection. LEFT VERTEBRAL: Patent. No dissection. OTHER: 1.7 cm left thyroid nodule. OTHER: 3-D reconstructions confirm findings. IMPRESSION: NORMAL CTA OF THE EXTRA-CRANIAL CAROTID AND VERTEBRAL ARTERIES. COMMENT: Quality ID #[id number]: Measurements of distal internal carotid diameter were used as the denomina tor for stenosis measurement. TECHNICAL DOCUMENTATION: JOB ID: [id number] Quality ID # 436: Final reports with documentation of one or more dose reduction techniques (e.g., Au tomated exposure control, adjustment of the mA and/or kV according to patient size, use of iterative reconstruction technique) 2010 [employer]- All Rights Reserved Reading location - IP/workstation name: [email or web address]
[2020-08-31 10:00] LABS: ALBUMIN 3.4 g/dL (3.5-5.0); ALKALINE PHOSPHATASE 83 U/L (38-126); ANION GAP 5 (5-19); ASPARTATE AMINO TRANSFERASE 21 U/L (14-36); BILIRUBIN,TOTAL 0.3 mg/dL (0.2-1.3); BLOOD UREA NITROGEN 11 mg/dL (7-20); CALCIUM 8.8 mg/dL (8.4-10.2); CARBON DIOXIDE 25 mmol/L (22-30); CHLORIDE 106 mmol/L (98-107); CREATINE KINASE 112 U/L (30-135); GLUCOSE 118 mg/dL (75-110); POTASSIUM 4.3 mmol/L (3.6-5.0); TOTAL PROTEIN 6.6 g/dL (6.3-8.2)
[2020-08-31 10:09] LABS: CREATINE KINASE MB 0.79 ng/mL (<4.55)
[2020-08-31 10:10] LABS: TROPONIN I < 0.012 ng/mL
[2020-08-31 10:24] VITALS: BP 165/80
--- NOTE | 2020-08-31 17:50 | EKG REPORT ---
SEVERITY:- NORMAL ECG - SINUS RHYTHM : Confirmed by: Chucho Biswas MD 31-Aug-2020 17:50:25
== END 2020-08-31 10:20 | disposition short-term general hospital (02) ==
LOC: ER 08:50
DX: I63.40 Cerebral infarction due to embolism of unspecified cerebral artery (principal); R51.9 Headache, unspecified; R20.0 Anesthesia of skin; M62.81 Muscle weakness (generalized); Z88.1 Allergy status to other antibiotic agents; Z88.8 Allergy status to other drugs, medicaments and biological substances; Z87.891 Personal history of nicotine dependence
CPT/HCPCS: 93005; 99291; 96365; 37195; 36415; 82553; 82962; 82550; 85025; 85610; 85730; 80053; 84484; 70496; 70498; 93010; J2997

== ENCOUNTER 2020-09-14 18:00 | Emergency (ER) | payer BC ==
[2020-09-14 18:16] VITALS: BP 127/74
--- NOTE | 2020-09-14 18:54 | ER Document Report ---
ED Neck/Back Problem - General Chief Complaint: Flank Pain Stated Complaint: BACK PAIN Time Seen by Provider: 09/14/20 18:39 Primary Care Provider: MATT SANCHEZ MD [Primary Care Provider] - Follow up tomorrow Mode of Arrival: Wheelchair Information source: Patient Notes: 60-year-old female presented to ED for complaint of right flank pain. 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 She states she had to really sharp bad pains in her right flank. She states she was able to go to the bathroom since then but then she came into the emergency room because of the amount of pain she is in. She states she is on Plavix and aspirin for TIA. She states she was in here about 2 weeks ago they gave her clot Buster in the emergency room due to some facial droop and and sent her to [place] they told her she had a mini stroke she has had solution of all symptoms. Constitutional: Negative for fever. HENT: Negative for sore throat. Eyes: Negative for visual changes. Cardiovascular: Negative for chest pain. Respiratory: Negative for shortness of breath. Gastrointestinal: Negative for abdominal pain, vomiting or diarrhea. Genitourinary: Negative for dysuria. Musculoskeletal: The right flank area after assisting a patient with getting up and getting cleaned up Skin: Negative for rash. Neurological: Negative for headaches, weakness or numbness. 10 point ROS negative except as marked above and in HPI. PHYSICAL EXAMINATION: GENERAL: Well-appearing, well-nourished and in no acute distress. HEAD: Atraumatic, normocephalic. EYES: Pupils equal round extraocular movements intact, conjunctiva are normal. ENT: Nares patent NECK: Normal range of motion LUNGS: No respiratory distress Musculoskeletal: Right flank muscle pain after assisting a patient. Does have tenderness to the right flank. NEUROLOGICAL: Normal speech, normal gait. PSYCH: Normal mood, normal affect. SKIN: Warm, Dry, normal turgor, no rashes or lesions noted. TRAVEL OUTSIDE OF THE [place] IN LAST 30 DAYS: No - HPI Patient complains to provider of: Pain - Flank Onset: This afternoon - Started between 515 and 530 Where: Work - Client's house Onset: Sudden Timing: Still present, Better Severity: Moderate Pain Level: 4 Context: Other - [employer]ash [employer] a client to get cleaned up Recent injury: Yes Associated symptoms: Upper back pain, Other - Right flank. denies: Incontinence, Like prior neck/back pain, Motor loss, Numbness/tingling, Radiation to arm, Radiation to chest, Radiation to leg, Unable to urinate Exacerbated by: Movement of trunk Similar symptoms previously: Yes Recently seen / treated by doctor: Yes - Related Data Allergies/Adverse Reactions: ciprofloxacin [Ciprofloxacin] Allergy (Intermediate, Verified 09/14/20 18:37) Hives, itching hydrocodone bitartrate [From Vicodin] Allergy (Intermediate, Verified 09/14/20 18:37) itching, headaches oxycodone HCl [From Percocet] Allergy (Intermediate, Verified 09/14/20 18:37) itching, headaches Home Medications: lipitor. plavix. asa. ambien Past Medical History - General Information source: Patient - Social History Smoking Status: Never Smoker Chew tobacco use (# tins/day): No Frequency of alcohol use: None Drug Abuse: None Lives with: Family Family History: CAD, DM, Hyperlipidemia, Hypertension, Thyroid Disfunction. denies: Arthritis, COPD, CVA, Malignancy Patient has homicidal ideation: No - Past Medical History Cardiac Medical History: Reports: None EENT Medical History: Reports: None Neurological Medical History: Reports: Hx Cerebrovascular Accident - TIA, Hx Migraine Endocrine Medical History: Reports: None Renal/ Medical History: Reports: Hx Ovarian Cysts Malignancy Medical History: Reports: None GI Medical History: Reports: None Musculoskeletal Medical History: Reports Hx Musculoskeletal Trauma Skin Medical History: Reports None Psychiatric Medical History: Reports: Hx Depression Traumatic Medical History: Reports: None Infectious Medical History: Reports: None Past Surgical History: Reports: Hx Hysterectomy, Hx Orthopedic Surgery - r wrist - Immunizations Hx Diphtheria, Pertussis, Tetanus Vaccination: Yes Physical Exam - Vital signs Vitals: Temp Pulse Resp BP Pulse Ox 98.1 F 71 18 127/74 H 100 09/14/20 18:12 09/14/20 18:12 09/14/20 18:12 09/14/20 18:12 09/14/20 18:12 Course - Re-evaluation Re-evalutation: 09/14/20 19:41 Urine showed minimal blood in the urine we will send urine for culture as well. We will treat if any UTI shows up but it does not look sufficient for a UTI. Patient did take her muscle relaxer. Will discharge patient home with muscle strain and follow-up if culture grows out anything. - Vital Signs Vital signs: Temp Pulse Resp BP Pulse Ox 98.1 F 71 18 127/74 H 100 09/14/20 18:37 09/14/20 18:12 09/14/20 18:12 09/14/20 18:12 09/14/20 18:12 - Laboratory Laboratory results interpreted by me: 09/14/20 18:52 Urine Blood LARGE H Ur Leukocyte Esterase SMALL H Discharge - Discharge Clinical Impression: Right flank pain, Muscle strain Condition: Stable Disposition: HOME, SELF-CARE Additional Instructions: MUSCLE STRAIN: You have strained a muscle -- torn the fibers within the muscle. This often occurs with strenuous exertion, or during an injury that suddenly stretches the muscle. The seriousness of a strain varies. Some strains heal within days, others cause problems for months. X-rays cannot show a muscle strain. X-rays are taken only if symptoms suggest that a fracture could be present. The usual treatment of a muscle strain is rest and ice packs. Sometimes, a sling, splint, or crutches may be necessary to rest the muscle. The muscle can be used again once pain subsides. Severe strains require a special exercise and stretching program to prevent permanent stiffness and disability. Your doctor will advise you if this will be necessary. Call the doctor immediately if pain or swelling becomes severe, or if numbness or discoloration develop. USE OF TYLENOL (ACETAMINOPHEN): Acetaminophen may be taken for pain relief or fever control. It's much safer than aspirin, offering a wider range of "safe" dosages. It is safe during . Some brand names are Tylenol, Panadol, Datril, Anacin 3, Tempra, and Liquiprin. Acetaminophen can be repeated every four hours. The following are maximum recommended dosages: WEIGHT Dose Drops Elixir Chewable(80mg) (LBS.) drprs=droppers tsp=teaspoon 6 40 mg 0.4 ml (1/2) 6-11 80 mg 0.8 ml (full) tsp 1 tab 12-16 120 mg 1 1/2 drprs 3/4 tsp 1 1/2 tabs 17-23 160 mg 2 drprs 1 tsp 2 tabs 24-30 240 mg 3 drprs 1 1/2 tsp 3 tabs 30-35 320 mg 2 tsp 4 tabs 36-41 360 mg 2 1/4 tsp 4 1/2 tabs 42-47 400 mg 2 1/2 tsp 5 tabs 48-53 480 mg 3 tsp 6 tabs 54-59 520 mg 3 1/4 tsp 6 1/2 tabs 60-64 560 mg 3 1/2 tsp 7 tabs 65-70 600 mg 3 3/4 tsp 7 1/2 tabs 71-76 640 mg 4 tsp 8 tabs 77-82 720 mg 4 1/2 tsp 9 tabs 83-88 800 mg 5 tsp 10 tabs >89 pounds or adults 650 mg to 900 mg Acetaminophen can be repeated every four hours. Maximum dose not to exceed 4000 mg a day. These maximum recommended dosages are slightly higher than the dosages written on the product container, but these dosages are very safe and below the toxic dosage for acetaminophen. ICE PACKS: Apply ice packs frequently against the painful area. Many different schedules are recommended, such as "20 minutes on, 20 minutes off" or "one hour ice, two hours rest." If you need to work, you may need to go longer between ice treatments. You should plan to have the area ice packed AT LEAST one fourth of the time. The ice should be applied over the wrap, tape, or splint, or over a layer of cloth -- not directly against the skin. Some ice bags have a built-in cloth and can be put directly on the skin. WARM PACKS: After approximately two days, apply gentle heat (such as a heating pad or hot water bottle) for about 20 to 30 minutes about every two hours -- at least four times daily. Warmth and elevation will help you make a more rapid recovery, and will ease the pain considerably. Do not use HOT heat, and never apply heat for longer than 30 minutes. The continuous heat can invisibly damage skin and muscles -- even when no burn is seen on the surface. Damaged muscles can make you MORE sore. MUSCLE RELAXERS: Take your Robaxin as prescribed. Muscle relaxing medications are usually prescribed for acute muscle spasm or injury to the neck and back. They are often combined with antiinflammatory pain medication for increased relief. You may stop the muscle relaxer when the pain and stiffness have improved. Start the medication again if spasms recur. Muscle relaxers may cause drowsiness, especially with the first dose. Do not operate machinery or drive while under the effects of the medication. Most muscle relaxers last up to 24 hours. Do not combine the medication with alcohol. FOLLOW-UP CARE: If you have been referred to a physician for follow-up care, call the physicians office for an appointment as you were instructed or within the next two days. If you experience worsening or a significant change in your symptoms, notify the physician immediately or return to the Emergency Department at any time for re-evaluation. Referrals: MATT SANCHEZ MD [Primary Care Provider] - Follow up tomorrow
[2020-09-14 19:25] LABS: APPEARANCE,URINE CLEAR; BILIRUBIN,URINE NEGATIVE (NEGATIVE); COLOR,URINE STRAW; GLUCOSE, URINE NEGATIVE (NEGATIVE); KETONES,URINE NEGATIVE (NEGATIVE); LEUKOCYTE ESTERASE,URINE SMALL (NEGATIVE); NITRITE,URINE NEGATIVE (NEGATIVE); PROTEIN,URINE NEGATIVE (NEGATIVE); URINE SPECIFIC GRAVITY 1.004; UROBILINOGEN,URINE NEGATIVE mg/dL (<2.0)
--- OUTSIDE RECORDS SUMMARY | 2020-09-16 14:46 | XMS REPORT ---
:1960 [facility] [place] [address] [place] [address] Care Team Providers Name Role Phone Sumeet Bravo Primary Care Physician Unavailable Elvin Henriquez MD Attending Clinician Unavailable MD Zheng Henriquez Attending Clinician Unavailable Allergies, Adverse Reactions, Alerts Allergy Name Allergy Status Severity Reaction(s) Onset Inactive Treat ing Comments Type Date Date Clinician Nitrofuranto Nitrofurant Active Headache 2019-0 in Monohyd oin Monohyd 5-05 Macro CAPS Macro CAPS 00:00: 00 Ciprofloxaci Ciprofloxac Active n HCl TABS in HCl TABS Tramadol Tramadol Active oxyCODONE oxyCODONE Active HCl CAPS HCl CAPS Medications Ordered Filled Start Stop Current Ordering Indication Dosage Frequency Signature Comments Components Medication Medication Date Date Medication? Clinician (SIG) Name Name Sulfamethox 2019-0 Yes Elvin Henriquez 1 Q0.5D Sulfamet ho azole-Trime 7-16 MD tejadaTri thoprim 00:00: methoprim 400-80 MG 00 400-80 MG Oral Tablet Oral Tablet TAKE 1 TABLET TWICE DAILY Quantity: 16 Refills: 0 Elvin Henriquez MD Start : 0Active Telmisartan 2020-0 Yes 0 Telmisarta 40 MG Oral 7-14 n 40 MG Tablet 00:00: Oral 00 Tablet Quantity: 30 Refills: 0 ,,, Start : 0Active Ondansetron 2020-0 Yes 0 Ondansetro HCl - 4 MG 5-09 n HCl - 4 Oral Tablet 00:00: MG Oral 00 Tablet Quantity: 30 Refills: 0 ,,, Start : 12-Mar-2020 Active Sulfamethox 2020-0 No Elvin Henriquez Sulfamet ho azole-Trime 5-06 MD tejadaTri thoprim 00:00: methoprim 400-80 MG 00 400-80 MG Oral Tablet Oral Tablet TAKE 1 TABLET PO TWICE DAILY X 7 DAYS then take 1 tablet po q HS x 30 days Quantity: 14 Refills: 0 Elvin Henriquez MD Start : 09-Mar-2020 Active Ambien 10 2020-0 No 0 1 Ambien 10 MG Oral 3-17 MG Oral Tablet 00:00: Tablet 00 TAKE 1 TABLET AT BEDTIME NEEDED FOR SLEEP. Refills: 0 ,,, Start : 0Active traMADol 2020-0 Yes 0 traMADol HCl - 50 MG 3-16 HCl - 50 Oral Tablet 00:00: MG Oral 00 Tablet Quantity: 20 Refills: 0 ,,, Start : 0Active Rizatriptan 2020-0 Yes 0 Rizatripta Benzoate 10 3-16 n Benzoate MG Oral 00:00: 10 MG Oral Tablet 00 Tablet Quantity: 12 Refills: 0 ,,, Start : 0Active Methocarbam 2020-0 Yes 0 Methocarba ol 500 MG 3-04 mol 500 MG Oral Tablet 00:00: Oral 00 Tablet Quantity: 40 Refills: 0 ,,, Start : 06-Jan-2020 Active Fluconazole 2020-0 Yes 0 Fluconazol 150 MG Oral 1-31 e 150 MG Tablet 00:00: Oral 00 Tablet Quantity: 1 Refills: 0 ,,, Start : 0Active Ondansetron 2020-0 No 0 Ondansetro 4 MG Oral 1-29 n 4 MG Tablet 00:00: Oral Disintegrat 00 Tablet ing Disintegra ting Quantity: 30 Refills: 0 ,,, Start : 0Active Carafate 1 2020-0 Yes 0 Carafate 1 GM/10ML 1-22 GM/10ML Oral 00:00: Oral Suspension 00 Suspension Quantity: 200 Refills: 0 ,,, Start : 0Active Phentermine 2020-0 Yes 0 Phentermin HCl - 37.5 1-02 e HCl - MG Oral 00:00: 37.5 MG Tablet 00 Oral Tablet Quantity: 30 Refills: 0 ,,, Start : 05-Nov-2019 Active Cefprozil 2020-0 Yes 0 Cefprozil 500 MG Oral 1-02 500 MG Tablet 00:00: Oral 00 Tablet Quantity: 14 Refills: 0 ,,, Start : 05-Nov-2019 Active Valsartan 2018-11 No 0 Valsartan 80 MG Oral 1-15 80 MG Oral Tablet 00:00: Tablet 00 Quantity: 30 Refills: 0 ,,, Start : 9Active Aimovig 140 2018-11 Yes 0 Aimovig MG/ML 0-12 140 MG/ML Subcutaneou 00:00: Subcutaneo s Solution 00 us Auto-inject Solution or Auto-injec tor Quantity: 1 Refills: 0 ,,, Start : 9Active Topiramate 2018-11 Yes 0 Topiramate 100 MG Oral 0-12 100 MG Tablet 00:00: Oral 00 Tablet Quantity: 60 Refills: 0 ,,, Start : 9Active Zolpidem 2018-11 Yes 0 Zolpidem Tartrate 10 0-12 Tartrate MG Oral 00:00: 10 MG Oral Tablet 00 Tablet Quantity: 30 Refills: 0 ,,, Start : 9Active Problems Condition Condition Condition Status Onset Resolution Last Treatin g Comments Name Details Category Date Date Treatment Clinician Date Hematuria Hematuria Problem Active Pyuria Pyuria Problem Active Urinary Urinary Problem Active tract tract infection infection Procedures Procedure Date / Time Performed Performing Clinician Devi e Urine Culture - Hospital Only 2020-05-20 00:00:00 Urine Culture 2020-05-19 00:00:00 Urinalysis 2020-05-19 00:00:00 History of Hysterectomy History of Wrist surgery History of Eye surgery History of Strabismus surgery Results Test Description Test Time Test Comments Text Results Atomic Results Result Comments Urinalysis 2020-05-26 08:15:00 Test Item Value Reference Range Comments Urine Color (test code = Urine Color) LT. YELLOW Yellow Urine Clarity (test code = Urine Clarity) CLEAR Clear Urine Glucose (test code = Urine Glucose) NEGATIVE Negati ve Urine Ketones (test code = Urine Ketones) NEGATIVE Negati ve Urine Bilirubin (test code = Urine Bilirubin) NEGATIVE Ne gative Urine Specific [place] (test code = Urine Specific [place]) 1.01 0 1.010-1.030 Urine Blood (test code = Urine Blood) LARGE Negative Urine pH (test code = Urine pH) 6.0 5.0-8.0 Urine Protein (test code = Urine Protein) NEGATIVE Negati ve Urine Urobilinogen (test code = Urine Urobilinogen) 0.2 Eu/dl 0.2 Urine Nitrites (test code = Urine Nitrites) NEGATIVE Nega tive Urine Leukocytes (test code = Urine Leukocytes) NEGATIVE Negative microscopic: 11-20rbc, 0-2epis, occ bactUrine Culture - Hospital [id number] 10:20:00~URINE CULTURE [id number]~Date Specimen Received By Lab:~@1948~SPECIMEN DESCRIPTION NOT INDICATEDSPECIAL REQUESTS BI PLATE RECEIVEDCULTURE >100,000 ORGANISMS/ML ESCHERICHIA COLIREPORT STATUS FINAL 05/22/2020~ORGANISM ~>100,000 ORGANISMS/ML ESCHERICHIA COLIMETHOD MICROSCAN CONVENTIONALAMPICILLIN >16 RESISTANTNITROFURANTOIN <=32 SUSCEPTIBLEUNASYN 16/8 INTERMEDIATEGENTAMICIN >8 RESISTANTTOBRAMYCIN >8 RESISTANTAMIKACIN 16 SUSCEPTIBLECEFAZOLIN (ANCEF) <=2 SUSCEPTIBLECEFOXITIN <=4 SUSCEPTIBLEROCEPHIN <=1 SUSCEPTIBLECEFTAZIDIME (FORTAZ) <=1 SUSCEPTIBLEAZTREONAM <=4 SUSCEPTIBLECIPROFLOXACIN >2 RESISTANTTETRACYCLINE >8 RESISTANTTRIMETH-SULFAMETHOXAZOLE <=0.5/9.5 SUSCEPTIBLELEVOFLOXACIN >4 RESISTANTZOSYN <=8 SUSCEPTIBLECEFEPIME <=2 SUSCEPTIBLEMEROPENEM <=1 [id number] 10:12:00 Test Item Value Reference Range Comments Urine Color (test code = Urine Color) LT. YELLOW Yellow Urine Clarity (test code = Urine Clarity) CLEAR Clear Urine Glucose (test code = Urine Glucose) NEGATIVE Negati ve Urine Ketones (test code = Urine Ketones) NEGATIVE Negati ve Urine Bilirubin (test code = Urine Bilirubin) NEGATIVE Ne gative Urine Specific [place] (test code = Urine 1.025 1.010- 1.030 Specific [place]) Urine Blood (test code = Urine Blood) LARGE Negative Urine pH (test code = Urine pH) 5.5 5.0-8.0 Urine Protein (test code = Urine Protein) NEGATIVE Negati ve Urine Urobilinogen (test code = Urine 0.2 Eu/dl 0.2 Urobilinogen) Urine Nitrites (test code = Urine Nitrites) POSITIVE Nega tive Urine Leukocytes (test code = Urine Leukocytes) NEGATIVE Negative microscopic: many bact, 3-5wbc, 11-20rbc, 0-2epis Assessments Condition Name Status Diagnosis Date Treating Clinici an Hematuria, unspecified Active 0 Hematuria, unspecified Active 0 Hematuria, unspecified Active 0 Hematuria Active Pyuria Active Hematuria Active Pyuria Active Encounters Start End Encounter Admission Attending Care Care Encounter Date/Time Date/Time Type Type Clinicians Facility Department ID 2020-05-26 2020-05-26 Appointment Elvin Henriquez [facility] [id number] 10:30:00 10:30:00 ; Elvin Henriquez MD 2020-05-19 2020-05-19 Zheng White [facility] [id number] 17:22:10 23:59:59 Zheng Henriquez 2020-05-19 2020-05-19 Appointment [facility] [id number] 11:15:00 11:15:00 ; Jey Hernandez 2020-04-14 2020-04-14 Appointment Elvin Henriquez [facility] [id number] 10:15:00 10:15:00 ; Elvin Henriquez MD 2020-03-02 2020-03-02 Zheng White [facility] [id number] 12:25:14 23:59:59 Zheng Henriquez 2020-03-02 2020-03-02 Appointment Elvin Henriquez [facility] 28 [id number] 09:45:00 09:45:00 ; Elvin Henriquez MD 2020-01-19 2020-01-19 Zheng White [facility] [id number] 18:15:52 23:59:59 Zheng Henriquez 2020-01-19 2020-01-19 [facility] [id number] 14:00:00 14:00:00 ; Elvin Henriquez MD Family History Family Member Diagnosis Comments Start Date Stop Date Mother Family history of heart disease Mother Family history of hypertension Father Family history of heart disease Father Family history of type 2 diabetes mellitus aunt Family history of breast cancer Payers Payer Name Policy Type Policy Number Effective Date Expiration D ate Social History Smoking Status Start Date Stop Date Ex-smoker (finding) Vital Signs Vital Name Observation Time Observation Value Comments Systolic blood pressure 2020-05-26 10:30:00 138 mm[Hg] Loca tion: RUE; Position: Sittin g Diastolic blood pressure 2020-05-26 10:30:00 87 mm[Hg] Loc ation: RUE; Position: Sittin g Body height 2020-05-26 10:30:00 60.5 [in_us] Weight 2020-05-26 10:30:00 174 [lb_av] Body mass index (BMI) 2020-05-26 10:30:00 33.42 kg/m2 [Ratio] Heart Rate 2020-05-26 10:30:00 78 /min Hospital Discharge Instructions NameDatesDetailsInstructions not documented
== END 2020-09-14 20:00 | disposition home or self-care (01) ==
LOC: ER 18:00
DX: S39.011A Strain of muscle, fascia and tendon of abdomen, initial encounter (principal); R10.9 Unspecified abdominal pain; M54.6 Pain in thoracic spine; M54.9 Dorsalgia, unspecified; X50.9XXA Other and unspecified overexertion or strenuous movements or postures, initial encounter; Y99.0 Civilian activity done for income or pay; Z79.02 Long term (current) use of antithrombotics/antiplatelets; Z79.82 Long term (current) use of aspirin; Z86.73 Personal history of transient ischemic attack (TIA), and cerebral infarction without residual deficits; Z88.1 Allergy status to other antibiotic agents; Z88.8 Allergy status to other drugs, medicaments and biological substances
CPT/HCPCS: 81001; 87086; 87088; 87186; 99283